=== PATIENT | male | born 1950 | race Caucasian/White ===

== ENCOUNTER 2018-06-19 21:25 | Emergency (ER) | payer MEDICARE ==
[2018-06-19] MEDS ORDERED: VANCOMYCIN HCL INJ 1000 MG VIAL IV ONE (21:44)
[2018-06-19] MEDS ORDERED: NORMAL SALINE 1000 ML 1,000 ML IV ONE (21:44)
[2018-06-19] MEDS ORDERED: PIPERACILLIN/TAZOBACTAM 4.5 GM VIAL IV ONE (21:44)
[2018-06-19 21:51] LABS: ABSOLUTE BASOPHILS # (AUTO) 0.1 10^3/uL (0.0-0.2); ABSOLUTE LYMPHOCYTES (AUTO) 1.5 10^3/uL (0.5-4.7); ABSOLUTE MONOCYTES (AUTO) 1.3 10^3/uL (0.1-1.4); ABSOLUTE NEUT (AUTO) 14.3 10^3/uL (1.7-8.2); BASOPHILS % (AUTO) 0.8 % (0-2); EOSINOPHILS % (AUTO) 0.2 % (0-6); HEMATOCRIT 27.4 % (37.9-51.0); HEMOGLOBIN 9.2 g/dL (13.5-17.0); LYMPHOCYTES % (AUTO) 8.5 % (13-45); MEAN CORPUSCULAR HEMOGLOBIN 29.2 pg (27.0-33.4); MEAN CORPUSCULAR HGB CONC 33.7 g/dL (32.0-36.0); MEAN CORPUSCULAR VOLUME 87 fl (80-97); MONOCYTES % (AUTO) 7.8 % (3-13); PLATELET COUNT 322 10^3/uL (150-450); RED BLOOD COUNT 3.16 10^6/uL (4.35-5.55); RED CELL DISTRIBUTION WIDTH 15.8 % (11.5-14.0); SEGMENTED NEUTROPHILS % (AUTO) 82.7 % (42-78); TOTAL CELLS COUNTED % (AUTO) 100 %; WHITE BLOOD COUNT 17.3 10^3/uL (4.0-10.5)
[2018-06-19 21:58] LABS: INTERNATIONAL RATION (INR) 1.14; PROTHROMBIN TIME 15.2 SEC (11.4-15.4)
[2018-06-19 22:11] LABS: ALANINE AMINOTRANSFERASE 26 U/L (21-72); ALBUMIN 2.9 g/dL (3.5-5.0); ALKALINE PHOSPHATASE 80 U/L (38-126); ANION GAP 11 (5-19); ASPARTATE AMINO TRANSFERASE 19 U/L (17-59); BILIRUBIN,DIRECT 0.2 mg/dL (0.0-0.4); BILIRUBIN,TOTAL 0.6 mg/dL (0.2-1.3); BLOOD UREA NITROGEN 28 mg/dL (7-20); CALCIUM 9.1 mg/dL (8.4-10.2); CARBON DIOXIDE 26 mmol/L (22-30); CHLORIDE 102 mmol/L (98-107); GLUCOSE 207 mg/dL (75-110); POTASSIUM 4.8 mmol/L (3.6-5.0); SODIUM 139.4 mmol/L (137-145); TOTAL PROTEIN 5.6 g/dL (6.3-8.2)
[2018-06-19 22:40] LABS: APPEARANCE,URINE TURBID; BILIRUBIN,URINE NEGATIVE (NEGATIVE); GLUCOSE, URINE 150 mg/dL (NEGATIVE); KETONES,URINE NEGATIVE (NEGATIVE); LEUKOCYTE ESTERASE,URINE LARGE (NEGATIVE); NITRITE,URINE NEGATIVE (NEGATIVE); PROTEIN,URINE >=500 mg/dL (NEGATIVE); URINE SPECIFIC GRAVITY 1.016; UROBILINOGEN,URINE NEGATIVE mg/dL (<2.0)
[2018-06-19 22:41] LABS: COLOR,URINE YELLOW
--- NOTE | 2018-06-19 22:53 | ER Document Report ---
ED General - General Chief Complaint: Nausea/Vomiting Stated Complaint: VOMITING Time Seen by Provider: 06/19/18 21:44 Mode of Arrival: Ambulatory Information source: Patient, Relative - HPI Patient complains to provider of: Fever chills abdominal pain Onset: Other - This is a gentleman that presents for evaluation of fevers as well as shaking chills with a percutaneous Laisha drain placed to decompress his gallbladder he was told it will take approximately 6 months until he is able to have his gallbladder removed. 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 He denies any chest pain at this time, does endorse fever, chills, abdominal pain, he notes that his CODY drain has stopped putting out any fluid today and is concerned. Had his surgery performed in [place] , is uncertain what medicines he actually takes. Past Medical History - General Information source: Patient - Social History Smoking Status: Former Smoker Family History: None Review of Systems - Review of Systems -: Yes All other systems reviewed and negative Physical Exam - Vital signs Vitals: Resp Pulse Ox 19 91 L 06/19/18 21:33 06/19/18 21:33 - General General appearance: Alert In distress: Mild - HEENT Head: Normocephalic Eyes: Normal Conjunctiva: Normal Cornea: Normal Extraocular movements intact: Yes Eyelashes: Normal Pupils: PERRL - Respiratory Respiratory status: No respiratory distress Chest status: Nontender Breath sounds: Normal Chest palpation: Normal - Cardiovascular Rhythm: Regular Heart sounds: Normal auscultation Murmur: No - Abdominal Inspection: Obese Distension: Distended, Other - Percutaneous drain in the right upper quadrant Tenderness: Tender Organomegaly: No organomegaly - Back Back: Normal - Extremities General upper extremity: Normal inspection, Nontender, Normal ROM, Normal strength General lower extremity: Normal inspection, Nontender, Normal ROM, Normal strength - Neurological Neuro grossly intact: Yes Cognition: Normal Orientation: AAOx4 [place] Coma Scale Eye Opening: Spontaneous Dennise Coma Scale Verbal: Oriented Dennise Coma Scale Motor: Obeys Commands Dennise Coma Scale Total: 15 Speech: Normal Cranial nerves: Normal Motor strength normal: LUE, RUE, LLE, RLE - Psychological Associated symptoms: Normal affect Course - Re-evaluation Re-evalutation: This is a 68-year-old male presented for evaluation of decreased output from his drain out of his gallbladder on the right side. He also is noted to have fevers chills and back pain. He is never had any symptoms like this in the past , he notes that he said the drain for several months following an episode in which he became very sick because of his gallbladder. Was told that he would not be able to have his gallbladder taken out for several months. This all happened in [place] also at that time he did have a heart attack. He denies any syncope or other symptoms. Examination the patient does have an obvious drain, there is output in the drain , it is clear in nature. Gentleman is tachycardic with lower blood pressures than usual. We will initiate fluid resuscitation, administration of antibiotics, broad- spectrum workup for probable sepsis. Will obtain CT the abdomen and pelvis for possible underlying infectious etiology including but not limited to biloma. CT the abdomen and pelvis demonstrates a renal hematoma as well as pyelonephritis and a biloma. We will continue antibiotics for this patient, will administer another liter of fluid, he does have a market leukocytosis as well as an elevated lactate at this time consistent with probable developing sepsis. This patient would likely benefit from transfer to a center with interventional radiology as well as gastroenterology and general surgery for his underlying biloma percutaneous drain and potential need for a nephrostomy tube placement. As a result we will proceed with potential transfer, patient is very with this at this time. 06/20/18 00:44 Contacted [facility] Dr. CISNEROS who is in agreement the patient would benefit from transfer at this time, agrees to accept patient to a stepdown bed. Recommended administration of another liter of fluid, repeat lactate check. Contacted [facility] as this patient may have to wait approximately 24 hours for a bed, having contacted [facility] they note that they are close to transfers other than STEMI and strokes. We will plan for repeat administration of Zosyn, will plan for repeat administration of vancomycin as necessary, will plan for administration of home medications including Brilinta. Updated patient regarding current course. He remains hemodynamically stable at this time with blood pressures in the 100s , his heart rate is remaining in the 90s. He is alert oriented and otherwise doing okay. He is in agreement with current course of action at this time. - Vital Signs Vital signs: Temp Pulse Resp BP Pulse Ox 22 H 106/60 91 L 06/20/18 00:01 06/20/18 00:01 06/20/18 00:01 - Laboratory Result Diagrams: 06/19/18 21:40 06/19/18 21:40 Laboratory results interpreted by me: 06/19/18 06/19/18 06/19/18 21:38 21:40 21:40 WBC 17.3 H RBC 3.16 L Hgb 9.2 L Hct 27.4 L RDW 15.8 H Seg Neutrophils % 82.7 H Lymphocytes % 8.5 L Absolute Neutrophils 14.3 H BUN 28 H Creatinine 1.62 H Est GFR ( Amer) 51 L Est GFR (Non-Af Amer) 42 L Glucose 207 H POC Glucose 232 H Lactic Acid Total Protein 5.6 L Albumin 2.9 L Urine Protein Urine Glucose (UA) Urine Blood Ur Leukocyte Esterase 06/19/18 06/19/18 21:48 21:48 WBC RBC Hgb Hct RDW Seg Neutrophils % Lymphocytes % Absolute Neutrophils BUN Creatinine Est GFR ( Amer) Est GFR (Non-Af Amer) Glucose POC Glucose Lactic Acid 2.4 H Total Protein Albumin Urine Protein >=500 H Urine Glucose (UA) 150 H Urine Blood MODERATE H Ur Leukocyte Esterase LARGE H Critical Care Note - Critical Care Note Total time excluding time spent on procedures (mins): 35 Discharge - Discharge Clinical Impression: Pyelonephritis, Biloma, Chills, Nausea Fever Qualifiers: Fever type: unspecified Qualified Code(s): R50.9 - Fever, unspecified Condition: Stable Disposition: [facility]
[2018-06-19 23:36] LABS: VENOUS BLOOD BASE EXCESS 4.4 mmol/L; VENOUS BLOOD HCO3 29.6 mmol/L (20-32); VENOUS BLOOD PCO2 47.4 mmHg (35-63); VENOUS BLOOD PH 7.41 (7.30-7.42)
--- NOTE | 2018-06-19 23:42 | RADIOLOGY REPORT (SQ) ---
EXAM DESCRIPTION: CT ABDOMEN PELVIS WITH IV CONTRAST COMPLETED DATE/TME: 06/19/2018 21:45 CLINICAL HISTORY: 68 years Male, concern for biloma, akshat drainage stopped Comparison: None. Technique: IV contrast. Coronal and sagittal reformat. This exam was performed according to our departmental dose-optimization program, which includes automated exposure control, adjustment of the mA and/or kV according to patient size and/or use of iterative reconstruction technique. [facility]: Dose Right [facility]: CareDose [facility]: Dose Right [facility]: Teradose 4D [facility]: [employer] LIMITATIONS: None Findings: 3.4 cm dilated stacked loops of small bowel in the left paracentral abdomen. Subcapsular right renal hematoma measures 3.4 cm in thickness and causes mild compression of the right kidney. Moderate right perinephric fat stranding. Patchy low-attenuation components of the right kidney may indicate ischemic insult, pyelonephritis, and/or neoplasm. Likely benign left renal cysts. Small bilateral inguinal fat only hernia. Moderate layered hemorrhage posterior to the right kidney. Moderate diffuse urinary bladder wall thickening and elongated urinary bladder. Cholecystectomy. A right upper abdominal drainage catheter tip is within a 5 x 1.2 cm partially encapsulated fluid collection at the gallbladder fossa probably due to biloma, or complicated seroma/abscess; with small fluid extending to the lateral aspect of the duodenum, second portion. Coronary arterial calcification/stent. Atherosclerosis. Atelectasis/scar. Colonic diverticulosis. Normal appendix. Degenerative disc disease. Inferior thorax, liver, pancreas, spleen, adrenals, pelvic organs, lymphatics, vasculature, and musculoskeleton appear otherwise unremarkable. IMPRESSION: 1. Large right perinephric hematoma with moderate layered blood products of the right paracentral retroperitoneum. 2. Abnormal enhancement of the right kidney probably due to multifocal ischemia/infarct. Differential diagnosis includes pyelonephritis and neoplasm. 3. Moderate diffuse urinary bladder cystitis. 4. 5 x 1.2 cm biloma or complicated seroma/abscess with drain. 5. Several loops of 3.4 cm diameter dilated small bowel the left paracentral abdomen probably due to focal ileus or low-grade obstruction.
[2018-06-20] MEDS ORDERED: GABAPENTIN 300 MG CAPSULE PO SCH (00:45)
[2018-06-20] MEDS ORDERED: TICAGRELOR 90 MG TABLET PO SCH (00:45)
[2018-06-20] MEDS: NORMAL SALINE 1000 ML 1,000 ML IV PRN ×2 (01:15→03:17)
[2018-06-20] MEDS ORDERED: NOREPINEPHRINE BITARTRATE INJ/PF 4 MG/4 ML SDV IV ONE (03:31)
[2018-06-20] MEDS ORDERED: NORMAL SALINE 1000 ML 1,000 ML IV ONE ×2 (04:29)
--- NOTE | 2018-06-20 04:36 | RADIOLOGY REPORT (SQ) ---
EXAM DESCRIPTION: XR CHEST 1 VIEW COMPLETED DATE/TME: 06/20/2018 00:00 CLINICAL HISTORY: 68 years Male, central line placed COMPARISON: CT abdomen and pelvis, same day. NUMBER OF VIEWS/TECHNIQUE: 1/AP Limitation: Rotation FINDINGS: Adequate lung volume, clear parenchyma, leftward position/rotation of the cardiac silhouette, chest right jugular central line tip at the cavoatrial junction on rotated view, and intact bony thorax. IMPRESSION: No acute cardiopulmonary findings. Limitation.
[2018-06-20] MEDS ORDERED: PIPERACILLIN/TAZOBACTAM 4.5 GM VIAL IV SCH (06:00)
[2018-06-20] MEDS ORDERED: ONDANSETRON HCL INJ/PF 4 MG/2 ML SDV IV ONE (07:32)
--- NOTE | 2018-06-20 07:51 | ER Document Report ---
Doctor's Note Notes: 06/20/18 07:51 Patient seen and evaluated prior to transfer via flight. Vitals stable. Patient has no complaints.
[2018-06-20 08:00] VITALS: BP 110/60
--- NOTE | 2018-06-20 09:23 | EKG REPORT ---
SEVERITY:- ABNORMAL ECG - SINUS TACHYCARDIA PROBABLE INFERIOR INFARCT, AGE INDETERMINATE : Confirmed by: Hattie Nelson MD 20-Jun-2018 09:22:16
[2018-06-20] MEDS ORDERED: ASPIRIN 81 MG TABLET, CHEWABLE PO SCH (10:00)
[2018-06-20] MEDS ORDERED: FAMOTIDINE 20 MG TABLET PO SCH (10:00)
[2018-06-20] MEDS ORDERED: METFORMIN HCL 500 MG TABLET PO SCH (10:00)
[2018-06-20] MEDS ORDERED: ATORVASTATIN CALCIUM 80 MG TABLET PO SCH (10:00)
[2018-06-20] MEDS ORDERED: MAGNESIUM OXIDE 400 MG TABLET PO SCH (10:00)
== END 2018-06-20 08:10 | disposition short-term general hospital (02) ==
LOC: EDBD → ER 21:25
DX: N12 Tubulo-interstitial nephritis, not specified as acute or chronic (principal); K91.89 Other postprocedural complications and disorders of digestive system; R11.2 Nausea with vomiting, unspecified; R50.9 Fever, unspecified; I25.2 Old myocardial infarction
CPT/HCPCS: 93005; 99291; 96361; 96375; 96365; 96366; 96367; 36415; 87040; 87086; 82962; 85025; 85610; 87088; 80053; 81001; 84484; 87186; 82803; 83605; 71045; 74177; 93010; C1751; J3490; J2405; J7030 ×2; J3370; J2543 ×2

== ENCOUNTER 2018-08-05 17:24 | Emergency (ER) | payer MEDICARE ==
[2018-08-05 18:23] LABS: HEMATOCRIT 28.8 % (37.9-51.0); HEMOGLOBIN 9.4 g/dL (13.5-17.0); MEAN CORPUSCULAR HEMOGLOBIN 28.3 pg (27.0-33.4); MEAN CORPUSCULAR HGB CONC 32.5 g/dL (32.0-36.0); MEAN CORPUSCULAR VOLUME 87 fl (80-97); PLATELET COUNT 409 10^3/uL (150-450); RED BLOOD COUNT 3.31 10^6/uL (4.35-5.55); RED CELL DISTRIBUTION WIDTH 17.7 % (11.5-14.0); WHITE BLOOD COUNT 16.5 10^3/uL (4.0-10.5)
--- NOTE | 2018-08-05 18:24 | RADIOLOGY REPORT (SQ) ---
EXAM DESCRIPTION: CHEST SINGLE VIEW COMPLETED DATE/TIME: 08/05/2018 5:54 pm REASON FOR STUDY: bed 5 db COMPARISON: 06/20/2018 EXAM PARAMETERS: NUMBER OF VIEWS: One view. TECHNIQUE: Single frontal radiographic view of the chest acquired. RADIATION DOSE: NA LIMITATIONS: None. FINDINGS: LUNGS AND PLEURA: No focal consolidation. No pneumothorax. Small bilateral pleural effus ions may be present. MEDIASTINUM AND HILAR STRUCTURES: No masses. Contour normal. HEART AND VASCULAR STRUCTURES: Heart normal in size. Normal vasculature. BONES: No acute findings. HARDWARE: None in the chest. OTHER: No other significant finding. IMPRESSION: NO ACUTE RADIOGRAPHIC FINDING IN THE CHEST. TECHNICAL DOCUMENTATION: JOB ID: [id number] [employer]- All Rights Reserved Reading location - IP/workstation name: [email or web address]
[2018-08-05] MEDS ORDERED: NORMAL SALINE 1000 ML 1,000 ML IV ONE ×2 (18:32→20:47)
--- NOTE | 2018-08-05 18:35 | EKG REPORT ---
SEVERITY:- ABNORMAL ECG - SINUS RHYTHM NONSPECIFIC INTRAVENTRICULAR CONDUCTION DELAY BORDERLINE R WAVE PROGRESSION, ANTERIOR LEADS BORDERLINE ST DEPRESSION, ANTEROLATERAL LEADS : Confirmed by: Lee Goode MD 05-Aug-2018 18:34:12
[2018-08-05 18:48] LABS: ABSOLUTE LYMPHOCYTES# (MANUAL) 0.3 10^3/uL (0.5-4.7); ABSOLUTE MONOCYTES # (MANUAL) 0.3 10^3/uL (0.1-1.4); ABSOLUTE NEUTROPHILS# (MANUAL) 15.8 10^3/uL (1.7-8.2); BAND NEUTROPHILS % (MANUAL) 6 % (3-5); BASOPHILS % (MANUAL) 0 % (0-2); EOSINOPHILS % (MANUAL) 0 % (0-6); LYMPHOCYTES % (MANUAL) 2 % (13-45); MONOCYTES % (MANUAL) 2 % (3-13); SEGMENTED NEUTROPHILS % (MAN) 90 % (42-78); TOTAL CELLS COUNTED 100
[2018-08-05 18:49] LABS: CREATINE KINASE MB 4.4 ng/mL (<4.55)
[2018-08-05 18:51] LABS: ACANTHOCYTES SLIGHT; ANISOCYTOSIS 1+; BURR CELLS 1+; OVALOCYTES SLIGHT; PLATELET COMMENT ADEQUATE; POIKILOCYTOSIS 1+; SCHISTOCYTES SLIGHT; TOXIC VACUOLATION PRESENT
[2018-08-05 18:53] LABS: TOXIC GRANULATION 1+
[2018-08-05 18:56] LABS: TROPONIN I 0.315 ng/mL
[2018-08-05 19:49] LABS: ALANINE AMINOTRANSFERASE 312 U/L (21-72); ALBUMIN 2.9 g/dL (3.5-5.0); ALKALINE PHOSPHATASE 366 U/L (38-126); ANION GAP 15 (5-19); ASPARTATE AMINO TRANSFERASE 378 U/L (17-59); BILIRUBIN,DIRECT 3.4 mg/dL (0.0-0.4); BLOOD UREA NITROGEN 47 mg/dL (7-20); CALCIUM 9.2 mg/dL (8.4-10.2); CARBON DIOXIDE 24 mmol/L (22-30); CHLORIDE 102 mmol/L (98-107); CREATINE KINASE 393 U/L (55-170); GLUCOSE 251 mg/dL (75-110); POTASSIUM 5.1 mmol/L (3.6-5.0); SODIUM 141.3 mmol/L (137-145); TOTAL PROTEIN 5.8 g/dL (6.3-8.2)
[2018-08-05 20:11] LABS: APPEARANCE,URINE SLIGHTLY-CLOUDY; BILIRUBIN,URINE NEGATIVE (NEGATIVE); COLOR,URINE YELLOW; GLUCOSE, URINE NEGATIVE (NEGATIVE); KETONES,URINE NEGATIVE (NEGATIVE); LEUKOCYTE ESTERASE,URINE NEGATIVE (NEGATIVE); NITRITE,URINE NEGATIVE (NEGATIVE); PROTEIN,URINE NEGATIVE (NEGATIVE); URINE SPECIFIC GRAVITY 1.009
--- NOTE | 2018-08-05 20:58 | ER Document Report ---
ED General - General Chief Complaint: Respiratory Distress Stated Complaint: SHORTNESS OF BREATH Time Seen by Provider: 08/05/18 17:38 Mode of Arrival: Stretcher Information source: Patient - HPI Patient complains to provider of: Hypotension, difficulty breathing Onset: This afternoon Onset/Duration: Gradual Severity: Moderate Notes: Patient is a 68-year-old male with multiple medical problems who is a poor historian, who was brought to the emergency department by EMS for complaints of shortness of breath that started sometime yesterday, he is noted to have a blood pressure of 66/38 on EMS arrival, I subsequently received medical records from [facility] where patient was cared for from 07/21 through after being seen in this emergency department and being transferred there, by history in December 2017 patient had an WI in [place], a few days later while in a [place] rehab center he developed fever and signs of sepsis, was transferred back to the hospital in [place] and subsequently diagnosed with sepsis likely from cholecystitis versus cholangitis, since he had just had an WI he was deemed to not be a surgical candidate and instead a cholecystostomy tube was placed, he subsequently moved to [facility] proximally 5 weeks ago, he presented to this emergency department on June 19 and was subsequently transferred from this hospital to tertiary formerly [facility] secondary to cholecystostomy tube malfunction, cholecystostomy tube was changed out as it was clogged and likely the source of sepsis, on examination today no longer has a cholecystostomy tube and he reports that it fell out sometime in his sleep approximately 1 month ago - Related Data Allergies/Adverse Reactions: No Known Allergies Allergy (Verified 06/20/18 07:41) Past Medical History - General Information source: Patient, Outside Facility Records - Social History Smoking Status: Unknown if Ever Smoked Chew tobacco use (# tins/day): No Frequency of alcohol use: None Drug Abuse: None Family History: None Patient has suicidal ideation: No Patient has homicidal ideation: No Endocrine Medical History: Reports: Hx Diabetes Mellitus Type 2 Renal/ Medical History: Denies: Hx Peritoneal Dialysis Review of Systems - Review of Systems Constitutional: No symptoms reported EENT: No symptoms reported Cardiovascular: No symptoms reported Respiratory: Short of breath Gastrointestinal: See HPI Genitourinary: No symptoms reported Male Genitourinary: No symptoms reported Musculoskeletal: No symptoms reported Skin: No symptoms reported Hematologic/Lymphatic: No symptoms reported Neurological/Psychological: No symptoms reported -: Yes All other systems reviewed and negative Physical Exam - Vital signs Vitals: Resp Pulse Ox 22 H 89 L 08/05/18 17:50 08/05/18 17:50 Interpretation: Hypotensive, Tachycardic, Hypoxic - General General appearance: Alert In distress: Moderate - HEENT Head: Normocephalic, Atraumatic Eyes: Scleral icterus Mucous membranes: Dry Pharynx: Normal Neck: Normal - Respiratory Respiratory status: Tachypnea Chest status: Nontender Breath sounds: Normal Chest palpation: Normal - Cardiovascular Rhythm: Regular, Tachycardia - Abdominal Inspection: Obese Distension: Distended - Soft, right upper quadrant tenderness, closed stoma from previous cholecystostomy tube in the right upper quadrant - Back Back: Normal - Extremities General upper extremity: Normal inspection General lower extremity: Edema - Pitting edema in bilateral lower extremities - Neurological Cognition: Confused Dennise Coma Scale Eye Opening: Spontaneous Dennise Coma Scale Verbal: Oriented [place] Coma Scale Motor: Obeys Commands Dennise Coma Scale Total: 15 - Skin Skin Temperature: Warm Skin Moisture: Dry Skin Color: Jaundiced Course - Re-evaluation Re-evalutation: 08/05/18 20:57 call to [facility] requested medical records 08/05/18 23:02 Call [facility], attempted to speak with transfer center about having patient transferred there for further evaluation and treatment, however I was informed by [facility] that they currently have no beds of any type except for pediatrics or direct except such as STEMI or trauma patients, and they are not putting any patients on any waiting list at this point in time either 08/05/18 23:10 [facility] with [facility] they also have no beds except for direct accepts at this time and we will not place patient on waiting list either 08/05/18 23:23 A call was placed to [facility], patient was discussed with hospitalist, Dr. Simba Milligan, who states he will check the bed situation at their facility and give me a call back if they are able to accept this patient - Vital Signs Vital signs: Temp Pulse Resp BP Pulse Ox 98.1 F 101 H 22 H 94/61 L 92 08/06/18 01:01 08/05/18 18:01 08/06/18 01:01 08/06/18 01:01 08/06/18 01:01 - Laboratory Result Diagrams: 08/05/18 17:55 08/05/18 19:12 Laboratory results interpreted by me: 08/05/18 08/05/18 08/05/18 17:55 17:55 19:12 WBC 16.5 H RBC 3.31 L Hgb 9.4 L Hct 28.8 L RDW 17.7 H Seg Neuts % (Manual) 90 H Band Neutrophils % 6 H Lymphocytes % (Manual) 2 L Monocytes % (Manual) 2 L Abs Neuts (Manual) 15.8 H Abs Lymphs (Manual) 0.3 L Potassium 5.1 H BUN 47 H Creatinine 2.27 H Est GFR ( Amer) 35 L Est GFR (Non-Af Amer) 29 L Glucose 251 H Total Bilirubin 4.0 H Direct Bilirubin 3.4 H AST 378 H ALT 312 H Alkaline Phosphatase 366 H Creatine Kinase 393 H NT-Pro-B Natriuret Pep 18976 H Total Protein 5.8 L Albumin 2.9 L Urine Blood Urine Urobilinogen 08/05/18 19:46 WBC RBC Hgb Hct RDW Seg Neuts % (Manual) Band Neutrophils % Lymphocytes % (Manual) Monocytes % (Manual) Abs Neuts (Manual) Abs Lymphs (Manual) Potassium BUN Creatinine Est GFR ( Amer) Est GFR (Non-Af Amer) Glucose Total Bilirubin Direct Bilirubin AST ALT Alkaline Phosphatase Creatine Kinase NT-Pro-B Natriuret Pep Total Protein Albumin Urine Blood LARGE H Urine Urobilinogen 2.0 H - EKG Interpretation by Me EKG shows normal: Sinus rhythm Rate: Normal Rhythm: NSR When compared to previous EKG there are: No significant change Critical Care Note - Critical Care Note Total time excluding time spent on procedures (mins): 100 Comments: Patient septic with persistent hypotension requiring fluid bolus followed by Levophed drip, IV antibiotics and transfer to tertiary care center for further evaluation and treatment Discharge - Discharge Clinical Impression: Sepsis, Cholecystitis with cholangitis, Elevated troponin, Congestive heart failure, CKD (chronic kidney disease) Condition: Critical Disposition: [facility]
[2018-08-05] MEDS ORDERED: DEXTROSE 5%-WATER 250 ML with NOREPINEPHRINE BITARTRATE 4 MG IV PRN ×2 (21:47)
[2018-08-05] MEDS ORDERED: NOREPINEPHRINE BITARTRATE INJ/PF 4 MG/4 ML SDV IV ONE (21:49)
[2018-08-05] MEDS ORDERED: PIPERACILLIN/TAZOBACTAM 3.375 GM VIAL IV ONE (23:05)
[2018-08-06 01:08] VITALS: BP 94/61
[2018-08-06] MEDS ORDERED: PIPERACILLIN/TAZOBACTAM 3.375 GM VIAL IV ONE (01:30)
== END 2018-08-06 02:00 | disposition short-term general hospital (02) ==
LOC: ER 17:24
DX: A41.9 Sepsis, unspecified organism (principal); K81.9 Cholecystitis, unspecified; R06.02 Shortness of breath; R06.00 Dyspnea, unspecified; I95.9 Hypotension, unspecified; E11.22 Type 2 diabetes mellitus with diabetic chronic kidney disease; N18.9 Chronic kidney disease, unspecified; I50.9 Heart failure, unspecified; I25.2 Old myocardial infarction
CPT/HCPCS: 93005; 99291; 99292; 96361; 96365; 96366; 96368; 36415; 82553; 82550; 83690; 85025; 80053; 81001; 84484; 83880; 71045; 93010; J3490; J7060; J7030; J2543

== ENCOUNTER 2018-10-15 11:30 | Inpatient (IN) | payer MEDICARE ==
[2018-10-15] MEDS ORDERED: NORMAL SALINE 500 ML IV ONE (12:47)
--- NOTE | 2018-10-15 12:50 | ER Document Report ---
ED Medical Screen (RME) - General Chief Complaint: Shortness Of Breath Stated Complaint: DIFFICULTY BREATHING Time Seen by Provider: 10/15/18 12:31 Notes: Patient is a 68-year-old male with history of sepsis that presents to the emergency department for chief complaint of feeling chilled, and shortness of breath. Patient reports having shortness of breath that started yesterday, and he feels like he is getting septic again as he had in the past. Although denies recording a fever at home, he states that his home health nurse was concerned and advised that he come to the ED for evaluation. ROS: Other than noted above, the 12 point review of systems was reviewed with the patient and were negative, all pertinent findings are included in the HPI. PHYSICAL EXAMINATION: Vital signs reviewed. GENERAL: Elderly male, no acute distress HEAD: Atraumatic, normocephalic. EYES: Pupils equal round extraocular movements intact, conjunctiva are normal. ENT: Nares patent NECK: Normal range of motion CV: Heart regular rate and rhythm LUNGS: No respiratory distress Abdomen: Soft, non-tender, Cholecystostomy tube present, bilious drainage noted in the drainage bag. Musculoskeletal: Normal range of motion NEUROLOGICAL: Normal speech PSYCH: Normal mood, normal affect. MDM: Patient seen and examined for rapid initial assessment. Vital signs reviewed. A comprehensive ED assessment and evaluation of the patient, analysis of test results and completion of the medical decision making process will be conducted by additional ED providers. *Note is created using voice recognition software and may contain spelling, syntax or grammatical errors. - Related Data Allergies/Adverse Reactions: No Known Allergies Allergy (Verified 10/15/18 11:33) Past Medical History Endocrine Medical History: Reports: Hx Diabetes Mellitus Type 2 Renal/ Medical History: Denies: Hx Peritoneal Dialysis Physical Exam - Vital signs Vitals: Temp Pulse Resp BP Pulse Ox 99.9 F 85 18 107/58 L 99 10/15/18 11:37 10/15/18 11:37 10/15/18 11:37 10/15/18 11:37 10/15/18 11:37 Course - Vital Signs Vital signs: Temp Pulse Resp BP Pulse Ox 99.9 F 85 18 107/58 L 99 10/15/18 11:37 10/15/18 11:37 10/15/18 11:37 10/15/18 11:37 10/15/18 11:37
[2018-10-15 13:40] LABS: ABSOLUTE BASOPHILS # (AUTO) 0.1 10^3/uL (0.0-0.2); ABSOLUTE EOSINOPHILS # (AUTO) 0.1 10^3/uL (0.0-0.6); ABSOLUTE LYMPHOCYTES (AUTO) 1.5 10^3/uL (0.5-4.7); ABSOLUTE MONOCYTES (AUTO) 1.2 10^3/uL (0.1-1.4); ABSOLUTE NEUT (AUTO) 6.5 10^3/uL (1.7-8.2); BASOPHILS % (AUTO) 0.9 % (0-2); EOSINOPHILS % (AUTO) 1.1 % (0-6); HEMATOCRIT 29.5 % (37.9-51.0); HEMOGLOBIN 9.9 g/dL (13.5-17.0); LYMPHOCYTES % (AUTO) 15.7 % (13-45); MEAN CORPUSCULAR HEMOGLOBIN 28.8 pg (27.0-33.4); MEAN CORPUSCULAR HGB CONC 33.6 g/dL (32.0-36.0); MEAN CORPUSCULAR VOLUME 86 fl (80-97); PLATELET COUNT 382 10^3/uL (150-450); RED BLOOD COUNT 3.44 10^6/uL (4.35-5.55); RED CELL DISTRIBUTION WIDTH 18.8 % (11.5-14.0); SEGMENTED NEUTROPHILS % (AUTO) 69.3 % (42-78); TOTAL CELLS COUNTED % (AUTO) 100 %; WHITE BLOOD COUNT 9.4 10^3/uL (4.0-10.5)
[2018-10-15 13:41] LABS: VENOUS BLOOD BASE EXCESS 3.2 mmol/L; VENOUS BLOOD HCO3 28.9 mmol/L (20-32); VENOUS BLOOD PH 7.4 (7.30-7.42)
[2018-10-15 13:41] LABS: APPEARANCE,URINE CLEAR; BILIRUBIN,URINE NEGATIVE (NEGATIVE); COLOR,URINE YELLOW; GLUCOSE, URINE NEGATIVE (NEGATIVE); KETONES,URINE NEGATIVE (NEGATIVE); LEUKOCYTE ESTERASE,URINE SMALL (NEGATIVE); NITRITE,URINE NEGATIVE (NEGATIVE); PROTEIN,URINE NEGATIVE (NEGATIVE); URINE SPECIFIC GRAVITY 1.009; UROBILINOGEN,URINE NEGATIVE mg/dL (<2.0)
[2018-10-15 13:48] LABS: INTERNATIONAL RATION (INR) 1.18; PROTHROMBIN TIME 15.6 SEC (11.4-15.4)
--- NOTE | 2018-10-15 13:51 | RADIOLOGY REPORT (SQ) ---
EXAM DESCRIPTION: CHEST SINGLE VIEW COMPLETED DATE/TIME: 10/15/2018 1:38 pm REASON FOR STUDY: short of breath COMPARISON: 08/05/2018 EXAM PARAMETERS: NUMBER OF VIEWS: One view. TECHNIQUE: Single frontal radiographic view of the chest acquired. RADIATION DOSE: NA LIMITATIONS: None. FINDINGS: LUNGS AND PLEURA: Small bilateral pleural effusions. MEDIASTINUM AND HILAR STRUCTURES: No masses. Contour normal. HEART AND VASCULAR STRUCTURES: Heart enlarged. Vascular congestion. BONES: No acute findings. HARDWARE: None in the chest. OTHER: No other significant finding. IMPRESSION: Vascular congestion. Small pleural effusions. TECHNICAL DOCUMENTATION: JOB ID: [id number] [employer]- All Rights Reserved Reading location - IP/workstation name: [email or web address]
[2018-10-15 14:07] LABS: ALANINE AMINOTRANSFERASE 28 U/L (21-72); ALBUMIN 4.1 g/dL (3.5-5.0); ALKALINE PHOSPHATASE 113 U/L (38-126); ANION GAP 11 (5-19); ASPARTATE AMINO TRANSFERASE 40 U/L (17-59); BILIRUBIN,DIRECT 0.3 mg/dL (0.0-0.4); BILIRUBIN,TOTAL 0.7 mg/dL (0.2-1.3); BLOOD UREA NITROGEN 50 mg/dL (7-20); CALCIUM 10.1 mg/dL (8.4-10.2); CARBON DIOXIDE 29 mmol/L (22-30); CHLORIDE 99 mmol/L (98-107); GLUCOSE 164 mg/dL (75-110); POTASSIUM 4.3 mmol/L (3.6-5.0); SODIUM 139.2 mmol/L (137-145); TOTAL PROTEIN 7.5 g/dL (6.3-8.2)
[2018-10-15] MEDS ORDERED: ASPIRIN 81 MG TABLET, CHEWABLE PO ONE (14:17)
[2018-10-15] MEDS ORDERED: FUROSEMIDE INJ/PF 20 MG/2 ML SDV IV ONE (14:54)
--- NOTE | 2018-10-15 14:58 | ER Document Report ---
ED General - General Chief Complaint: Shortness Of Breath Stated Complaint: DIFFICULTY BREATHING Time Seen by Provider: 10/15/18 12:31 Primary Care Provider: GUILLE FRANZ PA-C [Primary Care Provider] - Follow up as needed Mode of Arrival: Medic Information source: Patient, Emergency Med Personnel, [facility] Records Notes: 68-year-old male with coronary artery disease, congestive heart failure, hyperlipidemia, hypertension, type 2 diabetes, neuropathy, chronic cholecystitis with drain placement presents via EMS from home with complaint of shortness of breath that started yesterday. Patient states that he has been short of breath at rest. He does report that he underwent a stress test yesterday that was ordered by his protective service specialist Dr. Honeycutt. Patient does not know the results of that test. Patient denies fever, nausea, vomiting, chest pain, abdominal pain. He does report chills. Patient reports a recent hospitalization 6 weeks ago to [facility] for sepsis. - HPI Onset: Yesterday Onset/Duration: Sudden Quality of pain: No pain Severity: None Associated symptoms: Chills, Shortness of breath, Weakness. denies: Chest pain, Fever, Headache, Hurts to breath, Nausea, Vomiting, Sweating Exacerbated by: Movement Relieved by: Remaining still Similar symptoms previously: Yes Recently seen / treated by doctor: Yes - Related Data Allergies/Adverse Reactions: No Known Allergies Allergy (Verified 10/15/18 11:33) Past Medical History - General Information source: Patient - Social History Smoking Status: Never Smoker Frequency of alcohol use: None Drug Abuse: None Lives with: Family Family History: None Patient has suicidal ideation: No Patient has homicidal ideation: No - Past Medical History Cardiac Medical History: Reports: Hx Congestive Heart Failure, Hx Heart Attack, Hx Hypercholesterolemia, Hx Hypertension Endocrine Medical History: Reports: Hx Diabetes Mellitus Type 2 Renal/ Medical History: Denies: Hx Peritoneal Dialysis Past Surgical History: Reports: Hx Cardiac Catheterization, Hx Orthopedic Surgery, Hx Tonsillectomy Review of Systems - Review of Systems Notes: REVIEW OF SYSTEMS: CONSTITUTIONAL : Denies fever, sweats. Denies weight loss, EENT: Denies visual changes, eye pain. Denies sore throat, oral lesions, difficulty swallowing. CARDIOVASCULAR: Denies chest pain. Denies palpitations. Denies lower extremity edema. RESPIRATORY: Denies cough. Denies wheezing. GASTROINTESTINAL: Denies abdominal pain or distention. Denies nausea, vomiting, or diarrhea. Denies blood in vomitus, stools, or per rectum. Denies black, tarry stools. Denies constipation. GENITOURINARY: Denies difficulty urinating, painful urination, frequency, blood in urine, testicular pain or penile discharge. MUSCULOSKELETAL: Denies back or neck pain or stiffness. Denies joint pain or swelling. SKIN: Denies rash, lesions or sores. HEMATOLOGIC : Denies easy bruising or bleeding. LYMPHATIC: Denies swollen glands. NEUROLOGICAL: Denies confusion or altered mental status. Denies loss of consciousness. Denies dizziness or lightheadedness. Denies headache. Denies weakness or paralysis. Denies problems difficulty with ambulation, slurred speech. Denies sensory loss, numbness, or tingling. Denies seizures. PSYCHIATRIC: Denies anxiety or stress. Denies depression, suicidal ideation, or Physical Exam - Vital signs Vitals: Temp Pulse Resp BP Pulse Ox 99.9 F 85 18 107/58 L 99 10/15/18 11:37 10/15/18 11:37 10/15/18 11:37 10/15/18 11:37 10/15/18 11:37 - Notes Notes: PHYSICAL EXAMINATION: GENERAL: Well-appearing, well-nourished and in no acute distress. HEAD: Atraumatic, normocephalic. EYES: Pupils equal round and reactive to light, extraocular movements intact, sclera anicteric, conjunctiva are normal. ENT: Nares patent, oropharynx clear without exudates. Moist mucous membranes. NECK: Normal range of motion, supple without lymphadenopathy LUNGS: diminished breath sounds bilaterally and equal. No wheezes rales or rhonchi. HEART: Regular rate and rhythm without murmurs ABDOMEN: Soft, nontender, nondistended abdomen. No guarding, no rebound. No masses appreciated. Percutaneous drain in the right upper quadrant with green discharge. Musculoskeletal: Normal range of motion, no pitting or edema. No cyanosis. NEUROLOGICAL: Cranial nerves grossly intact. Normal speech, normal gait. Normal sensory, motor exams PSYCH: Normal mood, normal affect. SKIN: Warm, Dry, normal turgor, no rashes or lesions noted. Course - Re-evaluation Re-evalutation: Laboratory 10/15/18 10/15/18 10/15/18 12:20 13:11 13:23 WBC 9.4 RBC 3.44 L Hgb 9.9 L Hct 29.5 L MCV 86 MCH 28.8 MCHC 33.6 RDW 18.8 H Plt Count 382 Seg Neutrophils % 69.3 Lymphocytes % 15.7 Monocytes % 13.0 Eosinophils % 1.1 Basophils % 0.9 Absolute Neutrophils 6.5 Absolute Lymphocytes 1.5 Absolute Monocytes 1.2 Absolute Eosinophils 0.1 Absolute Basophils 0.1 PT INR VBG pH VBG pCO2 VBG HCO3 VBG Base Excess Sodium Potassium Chloride Carbon Dioxide Anion Gap BUN Creatinine Est GFR ( Amer) Est GFR (Non-Af Amer) Glucose POC Glucose 161 H Lactic Acid Calcium Total Bilirubin Direct Bilirubin Neonat Total Bilirubin Neonat Direct Bilirubin Neonat Indirect Bili AST ALT Alkaline Phosphatase Troponin I NT-Pro-B Natriuret Pep Total Protein Albumin Lipase Urine Color YELLOW Urine Appearance CLEAR Urine pH 6.0 Ur Specific [place] 1.009 Urine Protein NEGATIVE Urine Glucose (UA) NEGATIVE Urine Ketones NEGATIVE Urine Blood NEGATIVE Urine Nitrite NEGATIVE Urine Bilirubin NEGATIVE Urine Urobilinogen NEGATIVE Ur Leukocyte Esterase SMALL H Urine WBC (Auto) 10 Urine RBC (Auto) 1 U Hyaline Cast (Auto) 4 Urine Bacteria (Auto) TRACE Urine Ascorbic Acid NEGATIVE 10/15/18 10/15/18 10/15/18 13:23 13:23 13:23 WBC RBC Hgb Hct MCV MCH MCHC RDW Plt Count Seg Neutrophils % Lymphocytes % Monocytes % Eosinophils % Basophils % Absolute Neutrophils Absolute Lymphocytes Absolute Monocytes Absolute Eosinophils Absolute Basophils PT 15.6 H INR 1.18 VBG pH VBG pCO2 VBG HCO3 VBG Base Excess Sodium 139.2 Potassium 4.3 Chloride 99 Carbon Dioxide 29 Anion Gap 11 BUN 50 H Creatinine 1.86 H Est GFR ( Amer) 44 L Est GFR (Non-Af Amer) 36 L Glucose 164 H POC Glucose Lactic Acid 1.3 Calcium 10.1 Total Bilirubin 0.7 Direct Bilirubin 0.3 Neonat Total Bilirubin Not Reportable Neonat Direct Bilirubin Not Reportable Neonat Indirect Bili Not Reportable AST 40 ALT 28 Alkaline Phosphatase 113 Troponin I NT-Pro-B Natriuret Pep Total Protein 7.5 Albumin 4.1 Lipase Urine Color Urine Appearance Urine pH Ur Specific [place] Urine Protein Urine Glucose (UA) Urine Ketones Urine Blood Urine Nitrite Urine Bilirubin Urine Urobilinogen Ur Leukocyte Esterase Urine WBC (Auto) Urine RBC (Auto) U Hyaline Cast (Auto) Urine Bacteria (Auto) Urine Ascorbic Acid 10/15/18 10/15/18 10/15/18 13:23 13:23 13:23 WBC RBC Hgb Hct MCV MCH MCHC RDW Plt Count Seg Neutrophils % Lymphocytes % Monocytes % Eosinophils % Basophils % Absolute Neutrophils Absolute Lymphocytes Absolute Monocytes Absolute Eosinophils Absolute Basophils PT INR VBG pH 7.40 VBG pCO2 48.0 VBG HCO3 28.9 VBG Base Excess 3.2 Sodium Potassium Chloride Carbon Dioxide Anion Gap BUN Creatinine Est GFR ( Amer) Est GFR (Non-Af Amer) Glucose POC Glucose Lactic Acid Calcium Total Bilirubin Direct Bilirubin Neonat Total Bilirubin Neonat Direct Bilirubin Neonat Indirect Bili AST ALT Alkaline Phosphatase Troponin I 1.300 NT-Pro-B Natriuret Pep Total Protein Albumin Lipase 26.7 Urine Color Urine Appearance Urine pH Ur Specific [place] Urine Protein Urine Glucose (UA) Urine Ketones Urine Blood Urine Nitrite Urine Bilirubin Urine Urobilinogen Ur Leukocyte Esterase Urine WBC (Auto) Urine RBC (Auto) U Hyaline Cast (Auto) Urine Bacteria (Auto) Urine Ascorbic Acid 10/15/18 10/15/18 10/15/18 13:23 15:20 15:20 WBC RBC Hgb Hct MCV MCH MCHC RDW Plt Count Seg Neutrophils % Lymphocytes % Monocytes % Eosinophils % Basophils % Absolute Neutrophils Absolute Lymphocytes Absolute Monocytes Absolute Eosinophils Absolute Basophils PT INR VBG pH VBG pCO2 VBG HCO3 VBG Base Excess Sodium Potassium Chloride Carbon Dioxide Anion Gap BUN Creatinine Est GFR ( Amer) Est GFR (Non-Af Amer) Glucose POC Glucose Lactic Acid 1.6 Calcium Total Bilirubin Direct Bilirubin Neonat Total Bilirubin Neonat Direct Bilirubin Neonat Indirect Bili AST ALT Alkaline Phosphatase Troponin I Cancelled 1.230 NT-Pro-B Natriuret Pep 9390 H Total Protein Albumin Lipase Urine Color Urine Appearance Urine pH Ur Specific [place] Urine Protein Urine Glucose (UA) Urine Ketones Urine Blood Urine Nitrite Urine Bilirubin Urine Urobilinogen Ur Leukocyte Esterase Urine WBC (Auto) Urine RBC (Auto) U Hyaline Cast (Auto) Urine Bacteria (Auto) Urine Ascorbic Acid Chest X-Ray 10/15/18 12:48 IMPRESSION: Vascular congestion. Small pleural effusions. Temp Pulse Resp BP Pulse Ox 99.9 F 85 28 H 108/81 95 10/15/18 11:37 10/15/18 11:37 10/15/18 21:01 10/15/18 21:01 10/15/18 21:01 68-year-old male with coronary artery disease, congestive heart failure, hyperlipidemia, hypertension, type 2 diabetes, neuropathy, chronic cholecystitis with drain placement presents via EMS from home with complaint of shortness of breath that started yesterday. 10/15/18 15:03 Patient's troponin found to be 1.3 which is an increase from prior visits in July that showed a troponin of 0.31. Patient does take aspirin, Brilinta. Bedside ultrasound was performed and no significant pericardial effusion was seen. [facility] contacted for transfer as patient's protective service specialist is they are and he has been recently admitted. Patient did receive aspirin, Lovenox, Lasix. Chest x-ray consistent with vascular congestion, CHF. 10/15/18 16:38 Delta troponin obtained and now 1.23. Third troponin continues to be downtrending. Patient has been stable throughout his ED course. Lovenox scheduled. Expect transfer in the morning. Patient has been accepted for admission by Dr. Mark Walters at [facility] 10/15/18 22:52 10/15/18 22:53 10/15/18 22:54 - Vital Signs Vital signs: Temp Pulse Resp BP Pulse Ox 99.9 F 85 28 H 108/81 95 10/15/18 11:37 10/15/18 11:37 10/15/18 21:01 10/15/18 21:01 10/15/18 21:01 - Laboratory Result Diagrams: 10/15/18 13:23 10/15/18 13:23 Laboratory results interpreted by pa: 10/15/18 10/15/18 10/15/18 12:20 13:11 13:23 RBC 3.44 L Hgb 9.9 L Hct 29.5 L RDW 18.8 H PT BUN Creatinine Est GFR ( Amer) Est GFR (Non-Af Amer) Glucose POC Glucose 161 H NT-Pro-B Natriuret Pep Ur Leukocyte Esterase SMALL H 10/15/18 10/15/18 10/15/18 13:23 13:23 13:23 RBC Hgb Hct RDW PT 15.6 H BUN 50 H Creatinine 1.86 H Est GFR ( Amer) 44 L Est GFR (Non-Af Amer) 36 L Glucose 164 H POC Glucose NT-Pro-B Natriuret Pep 9390 H Ur Leukocyte Esterase - Diagnostic Test Radiology reviewed: Image reviewed, Reports reviewed - EKG Interpretation by Me EKG shows normal: Sinus rhythm, ST-T Waves - ST depression the fourth through V6. Rate: Normal Rhythm: NSR [place]/QRS: LPHB/LPFB When compared to previous EKG there are: Changes noted Critical Care Note - Critical Care Note Total time excluding time spent on procedures (mins): 40 - Minutes of critical care time spent in direct contact evaluating and reevaluating the patient, treating symptoms, reviewing labs and studies and speaking with family and consultants excluding any procedures Discharge - Discharge Clinical Impression: NSTEMI (non-ST elevated myocardial infarction), SOB (shortness of breath), Hypoxia CHF (congestive heart failure) Qualifiers: Heart failure type: unspecified Heart failure chronicity: unspecified Qualified Code(s): I50.9 - Heart failure, unspecified Condition: Good Disposition: [facility] Referrals: GUILLE FRANZ PA-C [Primary Care Provider] - Follow up as needed
--- NOTE | 2018-10-15 22:54 | EKG REPORT ---
SEVERITY:- ABNORMAL ECG - SINUS RHYTHM LEFT POSTERIOR FASCICULAR BLOCK BORDERLINE R WAVE PROGRESSION, ANTERIOR LEADS ST DEPRESSION, CONSIDER ISCHEMIA, LAT LEADS : Confirmed by: Misty Brown 15-Oct-2018 22:53:20
[2018-10-16] MEDS ORDERED: CEFTRIAXONE 1 GM/D5W RTU 1 GM/50 ML RTUPB IV ONE (08:47)
[2018-10-16 09:55] LABS: ABSOLUTE BASOPHILS # (AUTO) 0.1 10^3/uL (0.0-0.2); ABSOLUTE EOSINOPHILS # (AUTO) 0.2 10^3/uL (0.0-0.6); ABSOLUTE LYMPHOCYTES (AUTO) 1.3 10^3/uL (0.5-4.7); ABSOLUTE MONOCYTES (AUTO) 1.2 10^3/uL (0.1-1.4); ABSOLUTE NEUT (AUTO) 7.1 10^3/uL (1.7-8.2); BASOPHILS % (AUTO) 0.6 % (0-2); EOSINOPHILS % (AUTO) 1.8 % (0-6); HEMATOCRIT 28.5 % (37.9-51.0); HEMOGLOBIN 9.7 g/dL (13.5-17.0); LYMPHOCYTES % (AUTO) 13.2 % (13-45); MEAN CORPUSCULAR HEMOGLOBIN 29.2 pg (27.0-33.4); MEAN CORPUSCULAR VOLUME 86 fl (80-97); MONOCYTES % (AUTO) 12.5 % (3-13); PLATELET COUNT 339 10^3/uL (150-450); RED BLOOD COUNT 3.32 10^6/uL (4.35-5.55); RED CELL DISTRIBUTION WIDTH 18.8 % (11.5-14.0); SEGMENTED NEUTROPHILS % (AUTO) 71.9 % (42-78); TOTAL CELLS COUNTED % (AUTO) 100 %; WHITE BLOOD COUNT 9.8 10^3/uL (4.0-10.5)
[2018-10-16 10:10] LABS: ALANINE AMINOTRANSFERASE 24 U/L (21-72); ALBUMIN 3.6 g/dL (3.5-5.0); ALKALINE PHOSPHATASE 107 U/L (38-126); ANION GAP 10 (5-19); ASPARTATE AMINO TRANSFERASE 28 U/L (17-59); BILIRUBIN,DIRECT 0.2 mg/dL (0.0-0.4); BILIRUBIN,TOTAL 0.5 mg/dL (0.2-1.3); BLOOD UREA NITROGEN 47 mg/dL (7-20); CALCIUM 9.6 mg/dL (8.4-10.2); CARBON DIOXIDE 29 mmol/L (22-30); CHLORIDE 102 mmol/L (98-107); GLUCOSE 197 mg/dL (75-110); SODIUM 140.6 mmol/L (137-145); TOTAL PROTEIN 6.6 g/dL (6.3-8.2)
--- NOTE | 2018-10-16 10:35 | ER Document Report ---
Doctor's Note Notes: 10/16/18 10:32 Rounds: Chart reviewed and patient interviewed. Patient being evaluated for difficulty breathing and shortness of breath, diagnosed with a non-STEMI and CHF. Patient says his breathing is getting better, although he still short of breath with any exertion. Chest x-ray showed increased vascular congestion. He was found to have an elevated troponin of 1.2 even though his EKG showed no changes that would suggest an acute DC. His repeat troponins are down to 1.05. Patient was recently in [facility] for his sepsis. It was felt that he should be transferred back to their for care of this non-STEMI. This morning, all his vital signs are essentially normal. Patient appears to be medically stable for transfer. . Otf Espinal MD
--- NOTE | 2018-10-17 09:33 | ER Document Report ---
Doctor's Note Notes: 10/17/18 09:31 Rounds: Chart reviewed and patient interviewed. Patient says his breathing is much better. Looks much better than yesterday. Patient's troponins are trending downward. His initial troponin was 1.2 and this morning is down to 0.67. I do not find any reason that this patient needs to be transferred to [facility], at this time. Patient is agreeable to being admitted here. I spoke with the hospitalist who asked that I consult with Dr. Nelson, rv detailer on- call, to see if it is okay to admit the patient here. I discussed this case with Dr. Nelson and he said that he was fine with the patient staying here. I let the hospitalist know that and we will admit the patient to [facility]. Otf Espinal MD
[2018-10-17] MEDS ORDERED: ACETAMINOPHEN 325 MG TABLET PO PRN (10:03)
[2018-10-17] MEDS ORDERED: DEXTROSE 50%-WATER 25 GM/50 ML DISP.SYRIN IV PRN ×2 (10:14)
[2018-10-17] MEDS ORDERED: GLUCAGON,HUMAN RECOMB 1 MG INJ IM PRN (10:14)
[2018-10-17] MEDS ORDERED: DEXTROSE 40% GEL 15 GM TUBE PO PRN ×2 (10:14)
--- NOTE | 2018-10-17 10:33 | PDOC H&P ---
History of Present Illness Admission Date/PCP: 10/17/18 09:48 GUILLE FRANZ PA-C Patient complains of: Came in with shortness of breath and cold symptoms History of Present Illness: CHASE LIPSCOMB is a 68 year old male with history of congestive heart failure, coronary artery disease status post multiple stent placements, gallbladder disease with gallbladder drain, chronic pain syndrome, hypertension, diabetes mellitus, history of [place] came to the emergency room 2 days ago with complaints of sudden onset of cold and shortness of breath. He woke up around 8 AM with cold symptoms and shortness of breath decided to came to the emergency room for further evaluation. He denies any chest pains denies any nausea denies any headaches denies any vomiting diarrhea no constipation no sweating no other complaints. He was evaluated in the emergency room found to have initial troponins are elevated at 1.3 and patient was also found to be hypoxic decision was made to transfer the patient to [facility]. Patient is waiting for the bed for the last 2 days and there is no possibility of bed for the next 24- 48 hours. In the meantime the troponins are trending down latest troponin is 0.677. Dr. Nelson was consulted he thinks elevated troponins most likely secondary to CHF exacerbation and he agreed to do the consultation and recommended hospitalist can be admitt the patient. I went to talk to the patient patient is comfortably in the chair not in distress able to provide a good history. Agreed to stay here in this hospital for further management. He want to be DNI but wants resuscitation measures like a chest compressions. Past Medical History Cardiac Medical History: Reports: Congestive Heart Failure, Myocardial Infarction, Hyperlipidema, Hypertension Endocrine Medical History: Reports: Diabetes Mellitus Type 2 Psychiatric Medical History: Reports: None Traumatic Medical History: Reports: None Past Surgical History Past Surgical History: Reports: Cardiac Catheterization, Orthopedic Surgery, Tonsillectomy, Other - Patient has a gallbladder drain since December last year. Social History Lives with: Family Smoking Status: Never Smoker Frequency of Alcohol Use: None Hx Recreational Drug Use: No Drugs: None Hx Prescription Drug Abuse: No - Advance Directive Resuscitation Status: Do Not Intubate Family History Family History: None Parental Family History Reviewed: Yes - Father bypass surgery, mother with breast cancer Children Family History Reviewed: Unknown Sibling(s) Family History Reviewed.: Yes Medication/Allergy Allergies/Adverse Reactions: No Known Allergies Allergy (Verified 10/15/18 11:33) Review of Systems Constitutional: ABSENT: fever(s), headache(s), night sweats Eyes: ABSENT: visual disturbances Ears: ABSENT: hearing changes Nose, Mouth, and Throat: ABSENT: sore throat Cardiovascular: PRESENT: dyspnea on exertion. ABSENT: chest pain Respiratory: PRESENT: dyspnea Gastrointestinal: ABSENT: abdominal pain, constipation, diarrhea, hematemesis, hematochezia, nausea, vomiting Musculoskeletal: ABSENT: joint swelling Neurological: ABSENT: abnormal gait, abnormal speech, confusion, dizziness, focal weakness, syncope Psychiatric: ABSENT: anxiety, depression, homidical ideation, suicidal ideation Physical Exam Vital Signs: Temp Pulse Resp BP Pulse Ox 97.8 F 85 19 103/59 L 100 10/17/18 08:20 10/15/18 11:37 10/17/18 07:01 10/17/18 07:01 10/17/18 07:01 Intake & Output 10/16/18 10/17/18 10/18/18 06:59 06:59 06:59 Intake Total 500 50 Balance 500 50 Weight 109.2 kg General appearance: PRESENT: no acute distress Head exam: PRESENT: atraumatic Eye exam: PRESENT: PERRLA Teeth exam: PRESENT: poor dentation Neck exam: ABSENT: carotid bruit, JVD, lymphadenopathy, thyromegaly Respiratory exam: PRESENT: clear to auscultation kaye. ABSENT: rales, rhonchi, wheezes Cardiovascular exam: PRESENT: RRR. ABSENT: diastolic murmur, rubs, systolic murmur GI/Abdominal exam: PRESENT: normal bowel sounds, soft, other - Patient has drained for gallbladder disease.. ABSENT: tenderness Extremities exam: PRESENT: +1 edema Neurological exam: PRESENT: alert, awake, oriented to person, oriented to place, oriented to time, oriented to situation, CN II-XII grossly intact. ABSENT: motor sensory deficit Psychiatric exam: PRESENT: appropriate affect, normal mood. ABSENT: homicidal ideation, suicidal ideation Results Laboratory Results: 10/16/18 09:35 10/16/18 09:35 10/15/18 12:20 Clean Catch Midstream Urine Culture - Final Escherichia Coli 10/15/18 10/15/18 10/15/18 13:23 13:23 15:20 Troponin I 1.300 Cancelled 1.230 NT-Pro-B Natriuret Pep 9390 H 10/15/18 10/16/18 21:04 09:35 Troponin I 1.050 0.677 NT-Pro-B Natriuret Pep Impressions: Chest X-Ray 10/15/18 12:48 IMPRESSION: Vascular congestion. Small pleural effusions. Assessment & Plan - Diagnosis (1) NSTEMI (non-ST elevated myocardial infarction) Is this a current diagnosis for this admission?: Yes Plan: 10/17/2018-patient was admitted for elevated troponins most likely secondary to CHF exacerbation. He is going to be placed in IMCU. Cardiac enzymes and EKGs are requested consultation with Dr. Nelson was requested echocardiogram was requested he was placed on aspirin 325 mg p.o. daily atorvastatin 20 mg p.o. nightly, Lovenox 70 mg subcu every 12 hours. Lipid panel will be done tomorrow. Placed on oxygen 2 L nasal cannula. He is also on SCDs. EKG shows sinus rhythm with nonspecific ST-T changes in the lateral leads. Patient is chest pain-free since the admission. (2) CHF (congestive heart failure) Qualifiers: Heart failure type: unspecified Heart failure chronicity: unspecified Qualified Code(s): I50.9 - Heart failure, unspecified Is this a current diagnosis for this admission?: Yes Plan: 10/17/2018 patient is given the history of congestive heart failure on Lasix at home. He came in with shortness of breath and chest x-ray shows increased pulmonary congestion. Admission BNP is 9390. Start him on Lasix 40 mg every 12 hours, plan to repeat the BNP tomorrow. Echocardiogram was requested. Daily weight was requested he is going to be on fluid restriction 1200 mL/day. (3) SOB (shortness of breath) Is this a current diagnosis for this admission?: Yes Plan: 10/17/2018 patient came in with shortness of breath sudden onset probably secondary to exacerbation of CHF. She is comfortably in the chair communicating well shortness of breath secondary to CHF is resolved. Pulse ox today is 98% on room air. Shortness of breath is resolved. (4) Hypoxia Is this a current diagnosis for this admission?: Yes Plan: 10/27/2018-patient came in with pulse ox of 91% on room air at the time of arrival in ER. Pulse ox was improved to 96% today. Cocci has resolved. Hypoxia may be secondary to CHF exacerbation. - Time Time Spent: 50 to 70 Minutes Medications reviewed and adjusted accordingly: Yes Anticipated discharge: Home
--- NOTE | 2018-10-17 11:41 | RADIOLOGY REPORT (SQ) ---
EXAM DESCRIPTION: CHEST SINGLE VIEW COMPLETED DATE/TIME: 10/17/2018 10:43 am REASON FOR STUDY: shortness of breath COMPARISON: Chest films 10/15/2018, 08/05/2018, 06/20/2018 EXAM PARAMETERS: NUMBER OF VIEWS: One view. TECHNIQUE: Single frontal radiographic view of the chest acquired. RADIATION DOSE: NA LIMITATIONS: None. FINDINGS: LUNGS AND PLEURA: Pulmonary vascular congestion is present with Tyrell lines indicating fl uid overload or congestive failure. There now trace bilateral pleural effusions. Findings are stabl e compared to 10/15/2018. No pneumothorax. MEDIASTINUM AND HILAR STRUCTURES: No masses. Contour normal. HEART AND VASCULAR STRUCTURES: Mild cardiomegaly, stable. Old faintly radiopaque coronary stents. BONES: No acute findings. HARDWARE: None in the chest. OTHER: No other significant finding. IMPRESSION: Pulmonary vascular congestion with trace pleural effusions and few Tyrell lines. Findin gs worrisome for mild fluid overload or congestive failure. This is similar compared to 10/15/[address] film TECHNICAL DOCUMENTATION: JOB ID: [id number] [employer]- All Rights Reserved Reading location - IP/workstation name: [email or web address]
--- NOTE | 2018-10-17 12:45 | EKG REPORT ---
SEVERITY:- ABNORMAL ECG - SINUS RHYTHM MULTIPLE VENTRICULAR PREMATURE COMPLEXES LEFT POSTERIOR FASCICULAR BLOCK ST DEPRESSION, CONSIDER ISCHEMIA, LAT LEADS : Confirmed by: Misty Brown 17-Oct-2018 12:44:06
[2018-10-17] MEDS: INSULIN LISPRO 100 UNIT/ML 3 ML VIAL SUBCUT SCH ×3 (13:32→21:05)
[2018-10-17] MEDS: ATORVASTATIN CALCIUM 10 MG TABLET PO SCH (21:15)
[2018-10-17] MEDS: ENOXAPARIN SODIUM INJ 80 MG/0.8 ML DISP.SYRIN SUBCUT SCH (21:16)
[2018-10-17] MEDS: METOPROLOL TARTRATE 25 MG TABLET PO SCH (21:16)
[2018-10-17] MEDS: FAMOTIDINE 20 MG TABLET PO SCH (21:16)
[2018-10-17] MEDS ORDERED: GABAPENTIN 300 MG CAPSULE PO SCH (22:00)
[2018-10-17] MEDS ORDERED: FUROSEMIDE INJ/PF 40 MG/4 ML SDV IV SCH (22:00)
[2018-10-18 04:19] LABS: HEMATOCRIT 27.6 % (37.9-51.0); HEMOGLOBIN 9.3 g/dL (13.5-17.0); MEAN CORPUSCULAR HEMOGLOBIN 28.4 pg (27.0-33.4); MEAN CORPUSCULAR HGB CONC 33.7 g/dL (32.0-36.0); MEAN CORPUSCULAR VOLUME 85 fl (80-97); PLATELET COUNT 354 10^3/uL (150-450); RED BLOOD COUNT 3.26 10^6/uL (4.35-5.55); RED CELL DISTRIBUTION WIDTH 18.1 % (11.5-14.0); WHITE BLOOD COUNT 8.3 10^3/uL (4.0-10.5)
[2018-10-18 04:32] LABS: ALANINE AMINOTRANSFERASE 43 U/L (21-72); ALBUMIN 3.1 g/dL (3.5-5.0); ALKALINE PHOSPHATASE 128 U/L (38-126); ANION GAP 11 (5-19); ASPARTATE AMINO TRANSFERASE 27 U/L (17-59); BILIRUBIN,DIRECT 0.3 mg/dL (0.0-0.4); BILIRUBIN,TOTAL 0.5 mg/dL (0.2-1.3); BLOOD UREA NITROGEN 44 mg/dL (7-20); CALCIUM 9.5 mg/dL (8.4-10.2); CARBON DIOXIDE 26 mmol/L (22-30); CHLORIDE 103 mmol/L (98-107); CHOLESTEROL 77.48 mg/dL (0-200); GLUCOSE 136 mg/dL (75-110); POTASSIUM 4.1 mmol/L (3.6-5.0); SODIUM 139.5 mmol/L (137-145); TOTAL PROTEIN 5.8 g/dL (6.3-8.2); TRIGLYCERIDES 154 mg/dL (<150)
[2018-10-18 04:45] LABS: DIRECT LDL 38 mg/dL (<100)
[2018-10-18 04:49] LABS: VLDL CHOLESTEROL 30.8 mg/dL (10-31)
[2018-10-18] MEDS: HYDROCODONE/ACETAMINOPHEN 10-325 MG TABLET PO PRN ×3 (05:09→21:08)
[2018-10-18] MEDS: INSULIN LISPRO 100 UNIT/ML 3 ML VIAL SUBCUT SCH ×4 (08:12→21:14)
[2018-10-18] MEDS: TICAGRELOR 90 MG TABLET PO SCH (08:12)
[2018-10-18] MEDS ORDERED: GLYCERIN/WITCH HAZEL LEAF 1 EACH MED..PAD TP PRN ×2 (09:05→10:19)
[2018-10-18] MEDS ORDERED: PRAMOXINE HCL/MINERAL OIL/ZNOX OINT 28.3 GM PR PRN (09:30)
[2018-10-18] MEDS: ASPIRIN 325 MG TABLET PO SCH (09:34)
[2018-10-18] MEDS: DOCUSATE SODIUM 100 MG CAPSULE PO SCH (09:34)
[2018-10-18] MEDS: POLYETHYLENE GLYCOL 3350 POWDER 17 GM/1 PACKET PO SCH (09:35)
[2018-10-18] MEDS: METOPROLOL TARTRATE 25 MG TABLET PO SCH ×2 (09:35→21:09)
[2018-10-18] MEDS: FAMOTIDINE 20 MG TABLET PO SCH ×2 (09:35→21:09)
[2018-10-18] MEDS: FUROSEMIDE INJ/PF 40 MG/4 ML SDV IV SCH ×2 (09:37→17:03)
[2018-10-18] MEDS: ENOXAPARIN SODIUM INJ 80 MG/0.8 ML DISP.SYRIN SUBCUT SCH ×2 (09:38→21:08)
--- NOTE | 2018-10-18 09:46 | PDOC PROGRESS REPORT ---
Subjective Progress Note for:: 10/18/18 Subjective:: 68 year old male with history of congestive heart failure, coronary artery disease status post multiple stent placements, gallbladder disease with gallbladder drain, chronic pain syndrome, hypertension, diabetes mellitus, history of [place] came to the emergency room 2 days ago with complaints of sudden onset of cold and shortness of breath. He woke up around 8 AM with cold symptoms and shortness of breath decided to came to the emergency room for further evaluation. He denies any chest pains denies any nausea denies any headaches denies any vomiting diarrhea no constipation no sweating no other complaints. He was evaluated in the emergency room found to have initial troponins are elevated at 1.3 and patient was also found to be hypoxic decision was made to transfer the patient to [facility]. Patient is waiting for the bed for the last 2 days and there is no possibility of bed for the next 24- 48 hours. In the meantime the troponins are trending down latest troponin is 0.677. Dr. Nelson was consulted he thinks elevated troponins most likely secondary to CHF exacerbation and he agreed to do the consultation and recommended hospitalist can be admitt the patient. I went to talk to the patient patient is comfortably in the chair not in distress able to provide a good history. Agreed to stay here in this hospital for further management. He want to be DNI but wants resuscitation measures like a chest compressions. 10/18/2000 [id number] male with history of congestive heart failure coronary artery disease status post multiple stents placements recent history of stress test admitted for elevated troponins. He was chest pain-free throughout the hospital stay. He waited for transfer to [facility] for 2 days in the emergency room finally we admitted him after discussion with Dr. Nelson. His troponins have trended down. The textile engineer impression is elevated troponins most likely secondary to congestive heart failure exacerbation. Patient denies any chest pains today. Asymptomatic. No acute events in the last 24 hours. Reason For Visit: NON STEMI/CHF Physical Exam Vital Signs: Temp Pulse Resp BP Pulse Ox 98.3 F 77 16 110/64 98 10/18/18 07:33 10/18/18 07:33 10/18/18 07:33 10/18/18 07:33 10/18/18 07:33 Intake & Output 10/17/18 10/18/18 10/19/18 06:59 06:59 06:59 Intake Total 50 Output Total 800 Balance 50 -800 Weight 105.3 kg General appearance: PRESENT: no acute distress Head exam: PRESENT: atraumatic Eye exam: PRESENT: PERRLA Mouth exam: PRESENT: dry mucosa Neck exam: ABSENT: carotid bruit, JVD, lymphadenopathy, thyromegaly Respiratory exam: PRESENT: decreased breath sounds Cardiovascular exam: PRESENT: tachycardia GI/Abdominal exam: PRESENT: normal bowel sounds, soft, other - Patient has drain for the chronic gallbladder disease.. ABSENT: distended, guarding, mass, organolmegaly, rebound, tenderness Neurological exam: PRESENT: alert, awake, oriented to person, oriented to place, oriented to time, oriented to situation, CN II-XII grossly intact. ABSENT: motor sensory deficit Psychiatric exam: PRESENT: appropriate affect, normal mood. ABSENT: homicidal ideation, suicidal ideation Results Laboratory Results: 10/18/18 04:11 10/18/18 04:11 10/18/18 10/18/18 04:11 04:11 WBC 8.3 RBC 3.26 L Hgb 9.3 L Hct 27.6 L MCV 85 MCH 28.4 MCHC 33.7 RDW 18.1 H Plt Count 354 Sodium 139.5 Potassium 4.1 Chloride 103 Carbon Dioxide 26 Anion Gap 11 BUN 44 H Creatinine 1.48 H Est GFR ( Amer) 57 L Est GFR (Non-Af Amer) 47 L Glucose 136 H Calcium 9.5 Total Bilirubin 0.5 AST 27 ALT 43 Alkaline Phosphatase 128 H Total Protein 5.8 L Albumin 3.1 L Triglycerides 154 H Cholesterol 77.48 LDL Cholesterol Direct 38 VLDL Cholesterol 30.8 HDL Cholesterol 21 L 10/15/18 12:20 Clean Catch Midstream Urine Culture - Final Escherichia Coli 10/15/18 10/15/18 10/15/18 13:23 13:23 15:20 Troponin I 1.300 Cancelled 1.230 NT-Pro-B Natriuret Pep 9390 H 10/15/18 10/16/18 10/17/18 21:04 09:35 11:24 Troponin I 1.050 0.677 NT-Pro-B Natriuret Pep 6180 H 10/18/18 04:11 Troponin I NT-Pro-B Natriuret Pep 8730 H Impressions: Chest X-Ray 10/17/18 00:00 IMPRESSION: Pulmonary vascular congestion with trace pleural effusions and few Tyrell lines. Findings worrisome for mild fluid overload or congestive failure. This is similar compared to 10/15/2018 chest film Assessment & Plan - Diagnosis (1) NSTEMI (non-ST elevated myocardial infarction) Is this a current diagnosis for this admission?: Yes Plan: 10/17/2018-patient was admitted for elevated troponins most likely secondary to CHF exacerbation. He is going to be placed in IMCU. Cardiac enzymes and EKGs are requested consultation with Dr. Nelson was requested echocardiogram was requested he was placed on aspirin 325 mg p.o. daily atorvastatin 20 mg p.o. nightly, Lovenox 70 mg subcu every 12 hours. Lipid panel will be done tomorrow. Placed on oxygen 2 L nasal cannula. He is also on SCDs. EKG shows sinus rhythm with nonspecific ST-T changes in the lateral leads. Patient is chest pain-free since the admission. 10/18/2018-patient was admitted with elevated troponins most likely secondary to CHF exacerbation. Patient waited for 2 days to be transferred to [facility] for elevated troponins and the gradually troponins are trending down ER physician has a discussion with Dr. Nelson and he thinks elevated troponins most likely secondary to CHF exacerbation. I completely agree with him. Patient is chest pain-free. We going to do the another set of cardiac enzymes today. BNP is going up to 8700. Presently on Lasix 40 mg every 8 hours. Patient is on aspirin, Brilinta, on Lovenox 70 mcq 12 hrs . He is also on atorvastatin. (2) CHF (congestive heart failure) Qualifiers: Heart failure type: unspecified Heart failure chronicity: unspecified Qualified Code(s): I50.9 - Heart failure, unspecified Is this a current diagnosis for this admission?: Yes Plan: 10/17/2018 patient is given the history of congestive heart failure on Lasix at home. He came in with shortness of breath and chest x-ray shows increased pulmonary congestion. Admission BNP is 9390. Start him on Lasix 40 mg every 12 hours, plan to repeat the BNP tomorrow. Echocardiogram was requested. Daily weight was requested he is going to be on fluid restriction 1200 mL/day. 10/18/2018 patient has history of congestive heart failure getting Lasix 40 mg p.o. daily twice a day. We started him on Lasix IV 40 mg twice a day BNP went up to 8730 follow-up chest x-ray shows persistent vascular congestion. Plan is to increase the Lasix to 40 mg 3 times a day. Do the BNP and chest x-ray in the morning. He is on fluid restriction 1200 mL/day. Echocardiogram report is pending. (3) SOB (shortness of breath) Is this a current diagnosis for this admission?: Yes Plan: 10/17/2018 patient came in with shortness of breath sudden onset probably secondary to exacerbation of CHF. She is comfortably in the chair communicating well shortness of breath secondary to CHF is resolved. Pulse ox today is 98% on room air. Shortness of breath is resolved. 10/18/2018 patient initially came in with shortness of breath most likely secondary to CHF exacerbation. Shortness of breath was resolved. (4) Hypoxia Is this a current diagnosis for this admission?: Yes Plan: 10/17/2018-patient came in with pulse ox of 91% on room air at the time of arrival in ER. Pulse ox was improved to 96% today. Cocci has resolved. Hypoxia may be secondary to CHF exacerbation. 10/18/2018-patient came in with hypoxia most likely secondary to CHF exacerbation pulse ox today on room air is 98% hypoxia is resolved. - Time Time Spent with patient: 15-24 minutes Medications reviewed and adjusted accordingly: Yes Anticipated discharge: Home
[2018-10-18] MEDS ORDERED: LEVOFLOXACIN 500 MG TABLET PO SCH (10:00)
[2018-10-18] MEDS ORDERED: ENOXAPARIN SODIUM INJ 40 MG/0.4 ML DISP.SYRIN SUBCUT SCH (10:00)
[2018-10-18] MEDS ORDERED: PRAMOXINE HCL/MINERAL OIL/ZNOX OINT 28.3 GM PR SCH (10:00)
[2018-10-18 10:16] LABS: CREATINE KINASE MB 1.71 ng/mL (<4.55)
[2018-10-18 10:20] LABS: TROPONIN I 0.314 ng/mL
[2018-10-18 10:46] LABS: CREATINE KINASE MB 1.99 ng/mL (<4.55); TROPONIN I 0.3 ng/mL
[2018-10-18] MEDS: SULFAMETHOXAZOLE/TRIMETHOPRIM 800-160 MG TABLET PO SCH ×2 (12:24→21:08)
[2018-10-18] MEDS: GABAPENTIN 100 MG CAPSULE PO SCH ×2 (13:43→21:09)
[2018-10-18 16:52] LABS: CREATINE KINASE MB 2.63 ng/mL (<4.55); TROPONIN I 0.291 ng/mL
[2018-10-18] MEDS: BISACODYL 5 MG TABEC PO PRN (16:56)
[2018-10-18] MEDS: GLYCERIN/WITCH HAZEL LEAF 1 EACH MED..PAD TP SCH (17:04)
--- NOTE | 2018-10-18 20:11 | EKG REPORT ---
SEVERITY:- BORDERLINE ECG - SINUS RHYTHM ATRIAL PREMATURE COMPLEX CONSIDER RIGHT VENTRICULAR HYPERTROPHY BORDERLINE T ABNORMALITIES, INFERIOR LEADS : Confirmed by: Misty Brown 18-Oct-2018 20:10:11
[2018-10-18] MEDS: ATORVASTATIN CALCIUM 10 MG TABLET PO SCH (21:08)
[2018-10-19] MEDS: FUROSEMIDE INJ/PF 40 MG/4 ML SDV IV SCH ×2 (02:27→09:48)
[2018-10-19] MEDS: GABAPENTIN 100 MG CAPSULE PO SCH (05:18)
[2018-10-19] MEDS: HYDROCODONE/ACETAMINOPHEN 10-325 MG TABLET PO PRN ×2 (05:20→09:46)
[2018-10-19 07:11] LABS: ABSOLUTE BASOPHILS # (AUTO) 0.1 10^3/uL (0.0-0.2); ABSOLUTE EOSINOPHILS # (AUTO) 0.2 10^3/uL (0.0-0.6); ABSOLUTE LYMPHOCYTES (AUTO) 1.6 10^3/uL (0.5-4.7); ABSOLUTE NEUT (AUTO) 4.2 10^3/uL (1.7-8.2); BASOPHILS % (AUTO) 1.8 % (0-2); EOSINOPHILS % (AUTO) 3.3 % (0-6); HEMATOCRIT 27.6 % (37.9-51.0); HEMOGLOBIN 9.1 g/dL (13.5-17.0); LYMPHOCYTES % (AUTO) 21.9 % (13-45); MEAN CORPUSCULAR HEMOGLOBIN 28.1 pg (27.0-33.4); MEAN CORPUSCULAR HGB CONC 33.1 g/dL (32.0-36.0); MEAN CORPUSCULAR VOLUME 85 fl (80-97); MONOCYTES % (AUTO) 14.4 % (3-13); PLATELET COUNT 337 10^3/uL (150-450); RED BLOOD COUNT 3.25 10^6/uL (4.35-5.55); SEGMENTED NEUTROPHILS % (AUTO) 58.6 % (42-78); TOTAL CELLS COUNTED % (AUTO) 100 %; WHITE BLOOD COUNT 7.2 10^3/uL (4.0-10.5)
[2018-10-19 07:33] LABS: ALANINE AMINOTRANSFERASE 40 U/L (21-72); ALBUMIN 3.1 g/dL (3.5-5.0); ALKALINE PHOSPHATASE 130 U/L (38-126); ANION GAP 12 (5-19); ASPARTATE AMINO TRANSFERASE 24 U/L (17-59); BILIRUBIN,DIRECT 0.3 mg/dL (0.0-0.4); BILIRUBIN,TOTAL 0.5 mg/dL (0.2-1.3); BLOOD UREA NITROGEN 48 mg/dL (7-20); CALCIUM 9.3 mg/dL (8.4-10.2); CARBON DIOXIDE 25 mmol/L (22-30); CHLORIDE 101 mmol/L (98-107); CHOLESTEROL 73.47 mg/dL (0-200); GLUCOSE 117 mg/dL (75-110); POTASSIUM 4.2 mmol/L (3.6-5.0); SODIUM 137.9 mmol/L (137-145); TOTAL PROTEIN 5.8 g/dL (6.3-8.2); TRIGLYCERIDES 173 mg/dL (<150)
[2018-10-19 07:44] LABS: DIRECT LDL 38 mg/dL (<100)
[2018-10-19 07:50] LABS: VLDL CHOLESTEROL 34.6 mg/dL (10-31)
[2018-10-19] MEDS: TICAGRELOR 90 MG TABLET PO SCH (08:33)
[2018-10-19] MEDS: INSULIN LISPRO 100 UNIT/ML 3 ML VIAL SUBCUT SCH ×2 (08:36→11:53)
[2018-10-19] MEDS: ASPIRIN 325 MG TABLET PO SCH (09:46)
[2018-10-19] MEDS: SULFAMETHOXAZOLE/TRIMETHOPRIM 800-160 MG TABLET PO SCH (09:46)
[2018-10-19] MEDS: POLYETHYLENE GLYCOL 3350 POWDER 17 GM/1 PACKET PO SCH (09:46)
[2018-10-19] MEDS: DOCUSATE SODIUM 100 MG CAPSULE PO SCH (09:46)
[2018-10-19] MEDS: FAMOTIDINE 20 MG TABLET PO SCH (09:47)
[2018-10-19] MEDS: BISACODYL 5 MG TABEC PO PRN (09:47)
[2018-10-19] MEDS: ENOXAPARIN SODIUM INJ 80 MG/0.8 ML DISP.SYRIN SUBCUT SCH (09:48)
[2018-10-19] MEDS: GLYCERIN/WITCH HAZEL LEAF 1 EACH MED..PAD TP SCH (09:49)
[2018-10-19 11:37] VITALS: BP 102/50
[2018-10-19] MEDS: METOPROLOL TARTRATE 25 MG TABLET PO SCH (11:44)
--- NOTE | 2018-10-19 13:05 | PDOC DISCHARGE SUMMARY ---
General - Admit/Disc Date/PCP Admission Date/Primary Care Provider: 10/17/18 09:48 GUILLE FRANZ PA-C Discharge Date: 10/19/18 - Discharge Diagnosis (1) NSTEMI (non-ST elevated myocardial infarction) Is this a current diagnosis for this admission?: Yes Summary: 10/17/2018-patient was admitted for elevated troponins most likely secondary to CHF exacerbation. He is going to be placed in IMCU. Cardiac enzymes and EKGs are requested consultation with Dr. Nelson was requested echocardiogram was requested he was placed on aspirin 325 mg p.o. daily atorvastatin 20 mg p.o. nightly, Lovenox 70 mg subcu every 12 hours. Lipid panel will be done tomorrow. Placed on oxygen 2 L nasal cannula. He is also on SCDs. EKG shows sinus rhythm with nonspecific ST-T changes in the lateral leads. Patient is chest pain-free since the admission. 10/18/2018-patient was admitted with elevated troponins most likely secondary to CHF exacerbation. Patient waited for 2 days to be transferred to [facility] for elevated troponins and the gradually troponins are trending down ER physician has a discussion with Dr. Nelson and he thinks elevated troponins most likely secondary to CHF exacerbation. I completely agree with him. Patient is chest pain-free. We going to do the another set of cardiac enzymes today. BNP is going up to 8700. Presently on Lasix 40 mg every 8 hours. Patient is on aspirin, Brilinta, on Lovenox 70 mcq 12 hrs . He is also on atorvastatin. 10/19/2018-patient was admitted with elevated troponins most likely secondary to CHF exacerbation. No complaints of chest pains since the hospitalization. Troponin on admission is 1.3 gradually came down to 0.291. Acute EKG changes. Patient has an appointment with Dr. Qi mcfarland tomorrow in his office. Patient was advised to be compliant with medications , if started having chest pains strongly advised him to come to the ER or call the EMS as soon as possible. Patient understood and verbalized response. (2) CHF (congestive heart failure) Is this a current diagnosis for this admission?: Yes Summary: 10/17/2018 patient is given the history of congestive heart failure on Lasix at home. He came in with shortness of breath and chest x-ray shows increased pulmonary congestion. Admission BNP is 9390. Start him on Lasix 40 mg every 12 hours, plan to repeat the BNP tomorrow. Echocardiogram was requested. Daily weight was requested he is going to be on fluid restriction 1200 mL/day. 10/18/2018 patient has history of congestive heart failure getting Lasix 40 mg p.o. daily twice a day. We started him on Lasix IV 40 mg twice a day BNP went up to 8730 follow-up chest x-ray shows persistent vascular congestion. Plan is to increase the Lasix to 40 mg 3 times a day. Do the BNP and chest x-ray in the morning. He is on fluid restriction 1200 mL/day. Echocardiogram report is pending. 10/19/2018-patient has history of chronic congestive heart failure. He is on Lasix 40 mg twice a day. BNP came down to 6700. Patient is does not have any shortness of breath. He is on fluid restriction. Echocardiogram was done unfortunately I do not have the report available. (3) SOB (shortness of breath) Is this a current diagnosis for this admission?: Yes (4) Hypoxia Is this a current diagnosis for this admission?: Yes Summary: 10/17/2018-patient came in with pulse ox of 91% on room air at the time of arrival in ER. Pulse ox was improved to 96% today. Cocci has resolved. Hypoxia may be secondary to CHF exacerbation. 10/18/2018-patient came in with hypoxia most likely secondary to CHF exacerbation pulse ox today on room air is 98% hypoxia is resolved. 10/19/2018-patient came in with hypoxia most likely secondary to CHF exacerbation pulse ox today is 100% on room air. Hypoxia is resolved. - Additional Information Resuscitation Status: Do Not Intubate Discharge Diet: Diabetic Discharge Activity: Activity As Tolerated Prescriptions: Sulfamethoxazole/Trimethoprim [Septra-Ds 800-160 mg Tablet] 1 tab PO Q12 #14 tablet Home Medications: Aspirin [Lo-Dose Aspirin EC] 81 mg PO QAM 10/17/18 Atorvastatin Calcium [Lipitor 20 mg Tablet] 40 mg PO QHS 10/17/18 Cholecalciferol (Vitamin D3) [Vitamin D3 2000 unit Tablet] 2,000 unit PO QAM 10/17/18 Furosemide [Lasix 40 mg Tablet] 40 mg PO BID 10/17/18 Gabapentin [Neurontin 100 mg Capsule] 100 mg PO Q8 10/17/18 Hydrocodone/Acetaminophen [[place] 7.5-325 Tablet] 1 tab PO Q6HP PRN 10/17/18 Insulin Glargine,Hum.rec.anlog [Lantus Insulin 100 Unit/mL] 20 units SQ QPM 10/17/18 Metoprolol Succinate [Toprol Xl 25 mg Tab.sr] 25 mg PO DAILY 10/17/18 Nitroglycerin [Nitrostat 0.4 mg (1/150 Gr) Tabs 25/Bottle] 0.4 mg SL Q5MP PRN Ticagrelor [Brilinta 90 mg Tablet] 90 mg PO BID 10/17/18 Sulfamethoxazole/Trimethoprim [Septra-Ds 800-160 mg Tablet] 1 tab PO Q12 #14 tablet 10/19/18 History of Present Illness History of Present Illness: CHASE LIPSCOMB is a 68 year old male with history of congestive heart failure, coronary artery disease status post multiple stent placements, gallbladder disease with gallbladder drain, chronic pain syndrome, hypertension, diabetes mellitus, history of [place] came to the emergency room 2 days ago with complaints of sudden onset of cold and shortness of breath. He woke up around 8 AM with cold symptoms and shortness of breath decided to came to the emergency room for further evaluation. He denies any chest pains denies any nausea denies any headaches denies any vomiting diarrhea no constipation no sweating no other complaints. He was evaluated in the emergency room found to have initial troponins are elevated at 1.3 and patient was also found to be hypoxic decision was made to transfer the patient to [facility] Patient is waiting for the bed for the last 2 days and there is no possibility of bed for the next 24- 48 hours. In the meantime the troponins are trending down latest troponin is 0.677. Dr. Nelson was consulted he thinks elevated troponins most likely secondary to CHF exacerbation and he agreed to do the consultation and recommended hospitalist can be admitt the patient. I went to talk to the patient patient is comfortably in the chair not in distress able to provide a good history. Agreed to stay here in this hospital for further management. He want to be DNI but wants resuscitation measures like a chest compressions. Physical Exam Vital Signs: Temp Pulse Resp BP Pulse Ox 97.6 F 78 18 102/50 L 100 10/19/18 11:37 10/19/18 11:37 10/19/18 11:37 10/19/18 11:37 10/19/18 11:37 Intake & Output 10/18/18 10/19/18 10/20/18 06:59 06:59 06:59 Intake Total 826 Output Total 800 1150 300 Balance -800 -324 -300 Weight 105.3 kg 238.1 kg General appearance: PRESENT: no acute distress Head exam: PRESENT: atraumatic Eye exam: PRESENT: PERRLA Mouth exam: PRESENT: moist, tongue midline Neck exam: ABSENT: carotid bruit, JVD, lymphadenopathy, thyromegaly Respiratory exam: PRESENT: decreased breath sounds Cardiovascular exam: PRESENT: RRR. ABSENT: diastolic murmur, rubs, systolic murmur GI/Abdominal exam: PRESENT: normal bowel sounds, soft. ABSENT: distended, guarding, mass, organolmegaly, rebound, tenderness Extremities exam: PRESENT: full ROM. ABSENT: calf tenderness, clubbing, pedal edema Neurological exam: PRESENT: alert, awake, oriented to person, oriented to place, oriented to time, oriented to situation, CN II-XII grossly intact. ABSENT: motor sensory deficit Psychiatric exam: PRESENT: appropriate affect, normal mood. ABSENT: homicidal ideation, suicidal ideation Results Laboratory Results: 10/19/18 05:53 10/19/18 05:53 10/19/18 10/19/18 05:53 05:53 WBC 7.2 RBC 3.25 L Hgb 9.1 L Hct 27.6 L MCV 85 MCH 28.1 MCHC 33.1 RDW 18.0 H Plt Count 337 Seg Neutrophils % 58.6 Lymphocytes % 21.9 Monocytes % 14.4 H Eosinophils % 3.3 Basophils % 1.8 Absolute Neutrophils 4.2 Absolute Lymphocytes 1.6 Absolute Monocytes 1.0 Absolute Eosinophils 0.2 Absolute Basophils 0.1 Sodium 137.9 Potassium 4.2 Chloride 101 Carbon Dioxide 25 Anion Gap 12 BUN 48 H Creatinine 1.71 H Est GFR ( Amer) 48 L Est GFR (Non-Af Amer) 40 L Glucose 117 H Calcium 9.3 Magnesium 2.0 Total Bilirubin 0.5 AST 24 ALT 40 Alkaline Phosphatase 130 H Total Protein 5.8 L Albumin 3.1 L Triglycerides 173 H Cholesterol 73.47 LDL Cholesterol Direct 38 VLDL Cholesterol 34.6 H HDL Cholesterol 17 L 10/15/18 10/15/18 10/15/18 13:23 13:23 15:20 Creatine Kinase CK-MB (CK-2) Troponin I 1.300 Cancelled 1.230 NT-Pro-B Natriuret Pep 9390 H 10/15/18 10/16/18 10/17/18 21:04 09:35 11:24 Creatine Kinase CK-MB (CK-2) Troponin I 1.050 0.677 NT-Pro-B Natriuret Pep 6180 H 10/18/18 10/18/18 10/18/18 04:11 04:11 04:11 Creatine Kinase 41 L CK-MB (CK-2) 1.71 Troponin I 0.314 NT-Pro-B Natriuret Pep 8730 H 10/18/18 10/18/18 10/18/18 10:11 10:11 16:17 Creatine Kinase 38 L 46 L CK-MB (CK-2) 1.99 Troponin I 0.300 NT-Pro-B Natriuret Pep 10/18/18 10/19/18 16:17 05:53 Creatine Kinase CK-MB (CK-2) 2.63 Troponin I 0.291 NT-Pro-B Natriuret Pep 6210 H Impressions: Chest X-Ray 10/17/18 00:00 IMPRESSION: Pulmonary vascular congestion with trace pleural effusions and few Tyrell lines. Findings worrisome for mild fluid overload or congestive failure. This is similar compared to 10/15/2018 chest film Qualifiers - * PATIENT BEING DISCHARGED WITH ANY OF THE FOLLOWING DIAGNOSIS: No VTE patient discharged on overlapping Therapy?: No
--- NOTE | 2018-10-20 11:07 | XCELERA REPORT ---
[address] [address] Transthoracic Echocardiogram Report Name: CHASE LIPSCOMB Age: 68 yrs Gender: Male : 1950 Patient Status: Inpatient Patient Location: [place] [address]^A Study Date: 10/17/2018 03:35 PM History: CHF, CAD Height: 69 in Weight: 240 lb BSA: 2.2 m2 BP: 9/ mmHg Procedure: The study was technically difficult with many images being suboptimal in quality. Reason For Study: chf Ordering Physician: ASHWINI BANUELOS Performed By: Jin Guadalupe Interpretation Summary Poor quality study with suboptimal acoustic windows. Poor endocardial definition, Contrast study was not perfromed. The study was technically difficult with many images being suboptimal in quality. The left ventricle is mildly dilated. Left ventricular systolic function is mildly reduced. LV EF is 40-45% The right ventricular systolic function is normal. There is a moderate amount of mitral regurgitation There is no aortic valve stenosis There is a trace to mild amount of tricuspid regurgitation There is moderate pulmonary hypertension by echo There is no pericardial effusion. Would recommend repeat study with contrast. MMode/2D Measurements & Calculations RVDd: 4.3 cm LVPWd: 0.87 cm Ao root diam: 3.0 cm LVOT diam: 1.6 cm IVSd: 0.86 cm Ao root area: 7.1 cm2 LVOT area: 2.0 cm2 LA dimension: 5.0 cm Doppler Measurements & Calculations MV E max emperatriz: MV P1/2t max emperatriz: Ao V2 max: LV V1 max P.4 cm/sec 132.5 cm/sec 107.4 cm/sec 2.8 mmHg MV P1/2t: 48.5 msec Ao max PG: LV V1 max: 4.6 mmHg 83.0 cm/sec MVA(P1/2t): 4.5 cm2 MV dec slope: VIPIN(V,D): 1.6 cm2 800.5 cm/sec2 MV dec time: 0.13 sec PA V2 max: PI end-d emperatriz: TR max emperatriz: MV P1/2t-pr_phl: 72.9 cm/sec 172.4 cm/sec 406.1 cm/sec 48.5 msec PA max P.1 mmHg TR max P.0 mmHg Left Ventricle The left ventricle is mildly dilated. Left ventricular systolic function is mildly reduced. LV EF is 40-45%. LV diastolic function could not be adequately assessed. Not all wall segments were well visualized. There is mild global hypokinesis of the left ventricle. Right Ventricle The right ventricle is grossly normal size. The right ventricular systolic function is normal. Atria The right atrium is mildly dilated. The left atrium is mildly dilated. Interarterial septum not well visualized and not well dopplered. Cannot comment on ASD/PFO presence. Mitral Valve The mitral valve is grossly normal. There is a moderate amount of mitral regurgitation. Aortic Valve The aortic valve is calcified. There is no aortic valve stenosis. No aortic regurgitation is present. Tricuspid Valve The tricuspid valve is not well visualized, but is grossly normal. There is a trace to mild amount of tricuspid regurgitation. There is moderate pulmonary hypertension by echo. Best estimated right ventricular systolic pressure is elevated at >60mmHg. Pulmonic Valve The pulmonic valve is not well visualized. There is a mild to moderate amount of pulmonic regurgitation. Great Vessels The aortic root is normal size. Effusions There is no pericardial effusion. : ASHWINI BANUELOS Anil
== END 2018-10-19 13:50 | disposition home or self-care (01) | DRG 282 ==
LOC: ER 11:30 → EH 10-17 09:48 → 3S 10-17 20:34
PROVIDERS: ADMIT Internal Medicine; ATTEND Internal Medicine
DX: I21.A1 Myocardial infarction type 2 (principal); I50.9 Heart failure, unspecified; R09.02 Hypoxemia; I25.10 Atherosclerotic heart disease of native coronary artery without angina pectoris; E78.5 Hyperlipidemia, unspecified; E11.40 Type 2 diabetes mellitus with diabetic neuropathy, unspecified
CPT/HCPCS: 36415; 71045; 80053; 80061; 81001; 82550; 82553; 82803; 82962; 83036; 83605; 83690; 83735; 83880; 84484; 85025; 85027; 85610; 87040; 87086; 87088; 87186; 93005; 93010; 93306; J0696; J1650; J1815; J1940; J3490; J7040

== ENCOUNTER → 2018-10-29 | Outpatient (CLI) | payer OTHER, MEDICARE ==
[2018-10-29 15:18] LABS: ABSOLUTE BASOPHILS # (AUTO) 0.1 10^3/uL (0.0-0.2); ABSOLUTE LYMPHOCYTES (AUTO) 2.1 10^3/uL (0.5-4.7); ABSOLUTE MONOCYTES (AUTO) 1.1 10^3/uL (0.1-1.4); BASOPHILS % (AUTO) 1.2 % (0-2); EOSINOPHILS % (AUTO) 0.5 % (0-6); HEMATOCRIT 29.6 % (37.9-51.0); LYMPHOCYTES % (AUTO) 29.3 % (13-45); MEAN CORPUSCULAR HGB CONC 33.8 g/dL (32.0-36.0); MEAN CORPUSCULAR VOLUME 86 fl (80-97); MONOCYTES % (AUTO) 14.6 % (3-13); PLATELET COUNT 332 10^3/uL (150-450); RED BLOOD COUNT 3.45 10^6/uL (4.35-5.55); RED CELL DISTRIBUTION WIDTH 18.8 % (11.5-14.0); SEGMENTED NEUTROPHILS % (AUTO) 54.4 % (42-78); TOTAL CELLS COUNTED % (AUTO) 100 %; WHITE BLOOD COUNT 7.3 10^3/uL (4.0-10.5)
[2018-10-29 15:26] LABS: APPEARANCE,URINE CLEAR; BILIRUBIN,URINE NEGATIVE (NEGATIVE); COLOR,URINE YELLOW; GLUCOSE, URINE NEGATIVE (NEGATIVE); KETONES,URINE NEGATIVE (NEGATIVE); LEUKOCYTE ESTERASE,URINE NEGATIVE (NEGATIVE); NITRITE,URINE NEGATIVE (NEGATIVE); PROTEIN,URINE NEGATIVE (NEGATIVE); URINE SPECIFIC GRAVITY 1.009; UROBILINOGEN,URINE NEGATIVE mg/dL (<2.0)
[2018-10-29 15:59] LABS: ALANINE AMINOTRANSFERASE 23 U/L (21-72); ALKALINE PHOSPHATASE 122 U/L (38-126); ANION GAP 13 (5-19); ASPARTATE AMINO TRANSFERASE 28 U/L (17-59); BILIRUBIN,DIRECT 0.4 mg/dL (0.0-0.4); BILIRUBIN,TOTAL 0.4 mg/dL (0.2-1.3); BLOOD UREA NITROGEN 58 mg/dL (7-20); CALCIUM 9.7 mg/dL (8.4-10.2); CARBON DIOXIDE 27 mmol/L (22-30); CHLORIDE 98 mmol/L (98-107); GLUCOSE 117 mg/dL (75-110); PHOSPHORUS 5.8 mg/dL (2.5-4.5); POTASSIUM 4.6 mmol/L (3.6-5.0); SODIUM 138.4 mmol/L (137-145); TOTAL PROTEIN 6.7 g/dL (6.3-8.2)
== END ==
LOC: OD 14:34
PROVIDERS: ATTEND Internal Medicine Nephrology
DX: E11.22 Type 2 diabetes mellitus with diabetic chronic kidney disease (principal); N18.3 Chronic kidney disease, stage 3 (moderate); I12.9 Hypertensive chronic kidney disease with stage 1 through stage 4 chronic kidney disease, or unspecified chronic kidney disease
CPT/HCPCS: 36415; 80053; 81001; 83735; 83970; 84100; 85025

== ENCOUNTER → 2018-11-07 | Outpatient (CLI) | payer OTHER, MEDICARE ==
[2018-11-07 13:15] LABS: HEMATOCRIT 28.2 % (37.9-51.0); HEMOGLOBIN 9.4 g/dL (13.5-17.0); MEAN CORPUSCULAR HEMOGLOBIN 28.6 pg (27.0-33.4); MEAN CORPUSCULAR HGB CONC 33.4 g/dL (32.0-36.0); MEAN CORPUSCULAR VOLUME 86 fl (80-97); PLATELET COUNT 377 10^3/uL (150-450); RED BLOOD COUNT 3.29 10^6/uL (4.35-5.55); RED CELL DISTRIBUTION WIDTH 18.5 % (11.5-14.0); WHITE BLOOD COUNT 7.8 10^3/uL (4.0-10.5)
[2018-11-07 13:35] LABS: ALANINE AMINOTRANSFERASE 33 U/L (21-72); ALBUMIN 3.8 g/dL (3.5-5.0); ALKALINE PHOSPHATASE 119 U/L (38-126); ANION GAP 15 (5-19); ASPARTATE AMINO TRANSFERASE 21 U/L (17-59); BILIRUBIN,DIRECT 0.2 mg/dL (0.0-0.4); BILIRUBIN,TOTAL 0.5 mg/dL (0.2-1.3); BLOOD UREA NITROGEN 47 mg/dL (7-20); CALCIUM 9.6 mg/dL (8.4-10.2); CARBON DIOXIDE 24 mmol/L (22-30); CHLORIDE 102 mmol/L (98-107); GLUCOSE 153 mg/dL (75-110); IRON(TIBC) 43.5 ug/dL (49-181); SODIUM 140.5 mmol/L (137-145); TOTAL PROTEIN 6.6 g/dL (6.3-8.2)
[2018-11-10 12:37] LABS: A/G RATIO 0.9 (0.7-1.7); ALBUMIN 2 3.1 g/dL (2.9-4.4); ALPHA-2-GLOBULIN 2 1.1 g/dL (0.4-1.0); GLOBULIN TOTAL 3.6 g/dL (2.2-3.9); MONOCLONAL SPIKE 0.3 g/dL (Not Observ); PROTEIN TOTAL SERUM 6.7 g/dL (6.0-8.5)
== END ==
LOC: OD 11:56
PROVIDERS: ATTEND Internal Medicine Nephrology
DX: E13.40 Other specified diabetes mellitus with diabetic neuropathy, unspecified (principal); N18.3 Chronic kidney disease, stage 3 (moderate); D63.1 Anemia in chronic kidney disease; E13.22 Other specified diabetes mellitus with diabetic chronic kidney disease
CPT/HCPCS: 36415; 80053; 82728; 83540; 83550; 84165; 84443; 85027

== ENCOUNTER 2018-11-20 14:55 | Emergency (ER) | payer OTHER, MEDICARE ==
--- NOTE | 2018-11-20 17:58 | ER Document Report ---
ED Medical Screen (RME) - General Chief Complaint: Upper Abdominal Pain Stated Complaint: ABDOMINAL PAIN Time Seen by Provider: 11/20/18 17:56 Primary Care Provider: Camron DUMONT MD [Primary Care Provider] - Follow up as needed TRAVEL OUTSIDE OF THE [place] IN LAST 30 DAYS: No - HPI Notes: 11/20/18 17:56 Patient complained of right upper quadrant abdominal pain and also said that he is gallbladder catheter is no longer draining. He woke up in the morning and noticed the symptoms. Physical exam except for mild right upper quadrant tenderness to palpation is unremarkable. Patient had a gallbladder drainage catheter placed [facility]. - Related Data Allergies/Adverse Reactions: No Known Allergies Allergy (Verified 11/20/18 14:57) Past Medical History - Social History Frequency of alcohol use: None Drug Abuse: None - Past Medical History Cardiac Medical History: Reports: Hx Congestive Heart Failure, Hx Heart Attack, Hx Hypercholesterolemia, Hx Hypertension Endocrine Medical History: Reports: Hx Diabetes Mellitus Type 2 Renal/ Medical History: Denies: Hx Peritoneal Dialysis Past Surgical History: Reports: Hx Cardiac Catheterization, Hx Orthopedic Surgery, Hx Tonsillectomy, Other - Patient has a gallbladder drain since December last year. Physical Exam - Vital signs Vitals: Temp Pulse BP Pulse Ox 97.6 F 76 95/41 L 100 11/20/18 15:10 11/20/18 15:10 11/20/18 15:10 11/20/18 15:10 Course - Vital Signs Vital signs: Temp Pulse Resp BP Pulse Ox 97.6 F 74 20 110/66 98 11/20/18 15:13 11/20/18 17:52 11/20/18 15:13 11/20/18 17:52 11/20/18 15:13 Doctor's Discharge - Discharge Referrals: Camron DUMONT MD [Primary Care Provider] - Follow up as needed
[2018-11-20 18:17] LABS: ABSOLUTE BASOPHILS # (AUTO) 0.1 10^3/uL (0.0-0.2); ABSOLUTE EOSINOPHILS # (AUTO) 0.1 10^3/uL (0.0-0.6); ABSOLUTE LYMPHOCYTES (AUTO) 1.8 10^3/uL (0.5-4.7); ABSOLUTE MONOCYTES (AUTO) 0.9 10^3/uL (0.1-1.4); BASOPHILS % (AUTO) 0.9 % (0-2); EOSINOPHILS % (AUTO) 1.6 % (0-6); HEMATOCRIT 29.5 % (37.9-51.0); HEMOGLOBIN 9.8 g/dL (13.5-17.0); LYMPHOCYTES % (AUTO) 23.1 % (13-45); MEAN CORPUSCULAR HEMOGLOBIN 28.8 pg (27.0-33.4); MEAN CORPUSCULAR HGB CONC 33.1 g/dL (32.0-36.0); MEAN CORPUSCULAR VOLUME 87 fl (80-97); MONOCYTES % (AUTO) 10.9 % (3-13); PLATELET COUNT 357 10^3/uL (150-450); RED BLOOD COUNT 3.39 10^6/uL (4.35-5.55); RED CELL DISTRIBUTION WIDTH 20.1 % (11.5-14.0); SEGMENTED NEUTROPHILS % (AUTO) 63.5 % (42-78); TOTAL CELLS COUNTED % (AUTO) 100 %; WHITE BLOOD COUNT 7.9 10^3/uL (4.0-10.5)
[2018-11-20 18:29] LABS: INTERNATIONAL RATION (INR) 1.11; PROTHROMBIN TIME 14.9 SEC (11.4-15.4)
[2018-11-20 18:30] LABS: PARTIAL THROMBOPLASTIN TIME 33.9 SEC (23.5-35.8)
[2018-11-20 18:41] LABS: ALANINE AMINOTRANSFERASE 22 U/L (21-72); ALBUMIN 3.9 g/dL (3.5-5.0); ALKALINE PHOSPHATASE 109 U/L (38-126); ANION GAP 11 (5-19); ASPARTATE AMINO TRANSFERASE 19 U/L (17-59); BILIRUBIN,DIRECT 0.4 mg/dL (0.0-0.4); BILIRUBIN,TOTAL 0.7 mg/dL (0.2-1.3); BLOOD UREA NITROGEN 36 mg/dL (7-20); CALCIUM 9.9 mg/dL (8.4-10.2); CARBON DIOXIDE 29 mmol/L (22-30); CHLORIDE 99 mmol/L (98-107); GLUCOSE 127 mg/dL (75-110); LIPASE 52.2 U/L (23-300); POTASSIUM 4.1 mmol/L (3.6-5.0); SODIUM 138.9 mmol/L (137-145); TOTAL PROTEIN 6.7 g/dL (6.3-8.2)
--- NOTE | 2018-11-20 19:15 | ER Document Report ---
ED General - General Chief Complaint: Upper Abdominal Pain Stated Complaint: ABDOMINAL PAIN Time Seen by Provider: 11/20/18 17:56 Primary Care Provider: Camron DUMONT MD [Primary Care Provider] - Follow up as needed Notes: Patient is a 68-year-old male with history of cholecystostomy tube placement that presents to the emergency department for chief complaint of malfunctioning of the drain. Patient states that yesterday he was seen by his home health nurse, and his drain was not properly draining, they attempted to flush it, and resulted in the flush saline to come right back out at the site of the insert ion. He does not remember pulling on it at any point time, but is concerned that it may be coming out he said to have one replaced in the past. He was referred by the nurse from his surgeon to come to the ED to have this evaluated. He denies noting any fevers, chills, night sweats, states he has had some pain at the insertion site over the past 24 hours, but denies any yellowing of the skin, or itching. He currently rates his pain as a 1 out of 10, described as an aching sensation. Past Medical History: CAD, hypertension, hyperlipidemia, gallbladder disease Past Surgical History: PCI with stenting x7, cholecystostomy tubes Social History: Denies current tobacco, alcohol or drug use. Family History: Reviewed and noncontributory for presenting illness Allergies: Reviewed, see documented allergy list. REVIEW OF SYSTEMS: Other than noted above, the 12 point review of systems was reviewed with the patient and were negative, all pertinent findings are included in the HPI. PHYSICAL EXAMINATION: Vital signs reviewed, nursing noted reviewed. GENERAL: Well-appearing, well-nourished and in no acute distress. HEAD: Atraumatic, normocephalic. EYES: Eyes appear normal, extraocular movements intact, sclera anicteric, conjunctiva are normal. ENT: nares patent, oropharynx clear without exudates. Moist mucous membranes. NECK: Normal range of motion, supple without lymphadenopathy LUNGS: Breath sounds clear to auscultation bilaterally and equal. No wheezes rales or rhonchi. HEART: Regular rate and rhythm without murmurs ABDOMEN: Soft, nontender, normoactive bowel sounds. No rebound, guarding, or rigidity. No masses appreciated. Cholecystostomy tube noted, minimal drainage noted in the back, not actively draining at the moment, no evidence of infection at this insertion site, very mild erythema and granulation tissue. EXTREMITIES: Nontender, good range of motion, no pitting or edema. NEUROLOGICAL: No focal neurological deficits. Moves all extremities spontaneo usly Motor and sensory grossly intact on exam. PSYCH: Normal mood, normal affect. SKIN: Warm, Dry, normal turgor, no rashes or lesions noted on exposed skin, no jaundice TRAVEL OUTSIDE OF THE [place] IN LAST 30 DAYS: No - Related Data Allergies/Adverse Reactions: No Known Allergies Allergy (Verified 11/20/18 14:57) Past Medical History - Social History Smoking Status: Never Smoker Frequency of alcohol use: None Drug Abuse: None Family History: None Patient has suicidal ideation: No Patient has homicidal ideation: No - Past Medical History Cardiac Medical History: Reports: Hx Congestive Heart Failure, Hx Heart Attack, Hx Hypercholesterolemia, Hx Hypertension Endocrine Medical History: Reports: Hx Diabetes Mellitus Type 2 Renal/ Medical History: Denies: Hx Peritoneal Dialysis Past Surgical History: Reports: Hx Cardiac Catheterization, Hx Orthopedic Surgery, Hx Tonsillectomy, Other - Patient has a gallbladder drain since December last year. - Immunizations Hx Pneumococcal Vaccination: 06/09/18 Physical Exam - Vital signs Vitals: Temp Pulse BP Pulse Ox 97.6 F 76 95/41 L 100 11/20/18 15:10 11/20/18 15:10 11/20/18 15:10 11/20/18 15:10 Course - Re-evaluation Re-evalutation: Patient seen and examined vital signs reviewed. Laboratory data and imaging were ordered as appropriate for the patient's presenting symptoms and complaint, with consideration of any critical or life threatening conditions that may be associated with their obtained history and exam as noted above. Results were reviewed when available and demonstrated mild thickening of the gallbladder on ultrasound, without distention, tubes seem to be in place, blood work was unremarkable, no normal bilirubin, normal alk phos and LFTs. No leukocytosis. Attempt to flush the drain and catheter, however when attempting to flush saline, it seemed to come out of the insertion site, insert for possible fracture of the tubing versus displacement, I discussed this with the on-call surgeon that is working with the patient's general surgeon. Work with Dr. Lopez who recommends the patient come to [place] tomorrow to have it evaluated by interventional radiology, this is not emergent at this time I discussed this at length with the patient and the patient's daughter who is at bedside, I did discuss possible removal of the tube with the surgeon he recommended against this at this time. The patient was re-evaluated and was stable Evaluation was most consistent with cholecystostomy tube malfunction, I did advise to monitor for signs of cholangitis such as jaundice, fever, or significant pain, which the patient was agreeable to Results were discussed with the patient at this point, after careful consideration I feel that that patient can be discharged from the emergency department, the patient was educated treatments and reasons to return to the emergency department based on their presumed diagnosis as noted above, they were advised to followup with a primary care physician in 2-3 days. Patient was agreeable to plan of care. *Note is created using voice recognition software and may contain spelling, syntax or grammatical errors. Laboratory 11/20/18 11/20/18 11/20/18 18:06 18:06 18:06 WBC 7.9 RBC 3.39 L Hgb 9.8 L Hct 29.5 L MCV 87 MCH 28.8 MCHC 33.1 RDW 20.1 H Plt Count 357 Seg Neutrophils % 63.5 Lymphocytes % 23.1 Monocytes % 10.9 Eosinophils % 1.6 Basophils % 0.9 Absolute Neutrophils 5.0 Absolute Lymphocytes 1.8 Absolute Monocytes 0.9 Absolute Eosinophils 0.1 Absolute Basophils 0.1 PT 14.9 INR 1.11 APTT 33.9 Sodium 138.9 Potassium 4.1 Chloride 99 Carbon Dioxide 29 Anion Gap 11 BUN 36 H Creatinine 1.70 H Est GFR ( Amer) 49 L Est GFR (Non-Af Amer) 40 L Glucose 127 H Calcium 9.9 Total Bilirubin 0.7 Direct Bilirubin 0.4 Neonat Total Bilirubin Not Reportable Neonat Direct Bilirubin Not Reportable Neonat Indirect Bili Not Reportable AST 19 ALT 22 Alkaline Phosphatase 109 Total Protein 6.7 Albumin 3.9 Lipase 52.2 Abdomen Ultrasound 11/20/18 17:56 IMPRESSION: Mildly distended gallbladder with mild gallbladder wall thickening. Patient has cholecystostomy tube in place. No significant biliary ductal dilatation. - Vital Signs Vital signs: Temp Pulse Resp BP Pulse Ox 97.4 F 82 20 119/68 96 11/20/18 20:25 11/20/18 20:25 11/20/18 20:25 11/20/18 20:25 11/20/18 20:25 - Laboratory Result Diagrams: 11/20/18 18:06 11/20/18 18:06 Laboratory results interpreted by me: 11/20/18 11/20/18 18:06 18:06 RBC 3.39 L Hgb 9.8 L Hct 29.5 L RDW 20.1 H BUN 36 H Creatinine 1.70 H Est GFR ( Amer) 49 L Est GFR (Non-Af Amer) 40 L Glucose 127 H Discharge - Discharge Clinical Impression: Cholecystostomy tube dysfunction Qualifiers: Encounter type: initial encounter Qualified Code(s): T85.518A - Breakdown (mechanical) of other gastrointestinal prosthetic devices, implants and grafts, initial encounter Condition: Stable Disposition: HOME, SELF-CARE Additional Instructions: Please go to [facility] tomorrow, to the emergency department, Dr. Lopez recommended this, see you can have your drain assessed by interventional radiology at their facility, and you may need another one replaced but they will discuss this with you on your arrival. Please mention that you were referred by Dr. Lopez to be seen when you get to the emergency department. Referrals: Camron DUMONT MD [Primary Care Provider] - Follow up as needed
[2018-11-20 20:26] VITALS: BP 119/68
--- NOTE | 2018-11-20 20:37 | RADIOLOGY REPORT (SQ) ---
EXAM DESCRIPTION: US ABDOMEN LIMITED COMPLETED DATE/TME: 11/20/2018 17:56 CLINICAL HISTORY: 68 years, Male, RUQ abdominal pain, patient has history of drain in the gallbladder. Compared to CT abdomen dated 06/19/2018. Findings: Pancreas is within normal limits in its visualized portion although much of it is poorly visualized due to shadowing. Aorta and IVC are within normal limits. Liver is within normal limits with no focal lesions. No right upper quadrant ascites. Portal vein is patent with hepatopedal flow on color and spectral Doppler imaging. Gallbladder is only mildly distended. There is mild wall thickening. Wall measures approximately 5 mm in thickness. Trace pericholecystic fluid. No significant right upper quadrant ascites. No significant biliary dilatation with CBD measuring less than 5 mm. No right hydronephrosis. IMPRESSION: Mildly distended gallbladder with mild gallbladder wall thickening. Patient has cholecystostomy tube in place. No significant biliary ductal dilatation.
== END 2018-11-20 21:00 | disposition home or self-care (01) ==
LOC: ER 14:55
DX: T85.518A Breakdown (mechanical) of other gastrointestinal prosthetic devices, implants and grafts, initial encounter (principal); R10.10 Upper abdominal pain, unspecified; X58.XXXA Exposure to other specified factors, initial encounter; Z90.49 Acquired absence of other specified parts of digestive tract; E11.9 Type 2 diabetes mellitus without complications; I50.9 Heart failure, unspecified; E78.00 Pure hypercholesterolemia, unspecified; I11.0 Hypertensive heart disease with heart failure; I25.2 Old myocardial infarction
CPT/HCPCS: 36415; 76705; 80053; 83690; 85025; 85610; 85730; 99284

== ENCOUNTER → 2019-01-20 | Outpatient (CLI) | payer OTHER, MEDICARE ==
[2019-01-20 15:20] LABS: ABSOLUTE BASOPHILS # (AUTO) 0.1 10^3/uL (0.0-0.2); ABSOLUTE EOSINOPHILS # (AUTO) 0.1 10^3/uL (0.0-0.6); ABSOLUTE LYMPHOCYTES (AUTO) 1.8 10^3/uL (0.5-4.7); ABSOLUTE MONOCYTES (AUTO) 0.8 10^3/uL (0.1-1.4); ABSOLUTE NEUT (AUTO) 5.1 10^3/uL (1.7-8.2); BASOPHILS % (AUTO) 0.9 % (0-2); EOSINOPHILS % (AUTO) 1.3 % (0-6); HEMATOCRIT 37.2 % (37.9-51.0); HEMOGLOBIN 12.3 g/dL (13.5-17.0); MEAN CORPUSCULAR HEMOGLOBIN 28.1 pg (27.0-33.4); MEAN CORPUSCULAR HGB CONC 33.1 g/dL (32.0-36.0); MEAN CORPUSCULAR VOLUME 85 fl (80-97); MONOCYTES % (AUTO) 10.1 % (3-13); PLATELET COUNT 267 10^3/uL (150-450); RED BLOOD COUNT 4.37 10^6/uL (4.35-5.55); RED CELL DISTRIBUTION WIDTH 18.5 % (11.5-14.0); SEGMENTED NEUTROPHILS % (AUTO) 64.7 % (42-78); TOTAL CELLS COUNTED % (AUTO) 100 %
[2019-01-20 15:23] LABS: APPEARANCE,URINE CLEAR; BILIRUBIN,URINE NEGATIVE (NEGATIVE); COLOR,URINE YELLOW; GLUCOSE, URINE NEGATIVE (NEGATIVE); KETONES,URINE NEGATIVE (NEGATIVE); LEUKOCYTE ESTERASE,URINE SMALL (NEGATIVE); NITRITE,URINE NEGATIVE (NEGATIVE); PROTEIN,URINE NEGATIVE (NEGATIVE); URINE SPECIFIC GRAVITY 1.008; UROBILINOGEN,URINE NEGATIVE mg/dL (<2.0)
[2019-01-20 15:39] LABS: ALANINE AMINOTRANSFERASE 25 U/L (21-72); ALKALINE PHOSPHATASE 134 U/L (38-126); ANION GAP 13 (5-19); ASPARTATE AMINO TRANSFERASE 20 U/L (17-59); BILIRUBIN,DIRECT 0.3 mg/dL (0.0-0.4); BILIRUBIN,TOTAL 0.6 mg/dL (0.2-1.3); BLOOD UREA NITROGEN 33 mg/dL (7-20); CARBON DIOXIDE 31 mmol/L (22-30); CHLORIDE 100 mmol/L (98-107); GLUCOSE 157 mg/dL (75-110); PHOSPHORUS 3.8 mg/dL (2.5-4.5); POTASSIUM 3.8 mmol/L (3.6-5.0); SODIUM 143.7 mmol/L (137-145); TOTAL PROTEIN 7.2 g/dL (6.3-8.2)
== END ==
LOC: OD 14:50
PROVIDERS: ATTEND Internal Medicine Nephrology
DX: I12.9 Hypertensive chronic kidney disease with stage 1 through stage 4 chronic kidney disease, or unspecified chronic kidney disease (principal); N18.3 Chronic kidney disease, stage 3 (moderate); D63.1 Anemia in chronic kidney disease; E11.22 Type 2 diabetes mellitus with diabetic chronic kidney disease
CPT/HCPCS: 36415; 80053; 81001; 83735; 83970; 84100; 85025

== ENCOUNTER → 2019-05-19 | Outpatient (CLI) | payer MEDICARE ==
[2019-05-19 17:06] LABS: HEMATOCRIT 36.4 % (37.9-51.0); HEMOGLOBIN 12.3 g/dL (13.5-17.0); MEAN CORPUSCULAR HGB CONC 33.6 g/dL (32.0-36.0); MEAN CORPUSCULAR VOLUME 89 fl (80-97); PLATELET COUNT 184 10^3/uL (150-450); RED BLOOD COUNT 4.09 10^6/uL (4.35-5.55); WHITE BLOOD COUNT 7.2 10^3/uL (4.0-10.5)
[2019-05-19 17:15] LABS: APPEARANCE,URINE CLEAR; BILIRUBIN,URINE NEGATIVE (NEGATIVE); COLOR,URINE YELLOW; GLUCOSE, URINE NEGATIVE (NEGATIVE); KETONES,URINE NEGATIVE (NEGATIVE); LEUKOCYTE ESTERASE,URINE NEGATIVE (NEGATIVE); NITRITE,URINE NEGATIVE (NEGATIVE); PROTEIN,URINE NEGATIVE (NEGATIVE); URINE SPECIFIC GRAVITY 1.009; UROBILINOGEN,URINE NEGATIVE mg/dL (<2.0)
[2019-05-19 17:28] LABS: ANION GAP 14 (5-19); BLOOD UREA NITROGEN 23 mg/dL (7-20); CALCIUM 9.5 mg/dL (8.4-10.2); CARBON DIOXIDE 27 mmol/L (22-30); CHLORIDE 101 mmol/L (98-107); GLUCOSE 223 mg/dL (75-110); POTASSIUM 3.5 mmol/L (3.6-5.0)
== END ==
LOC: OD 16:19
PROVIDERS: ATTEND Internal Medicine Nephrology
DX: I13.0 Hypertensive heart and chronic kidney disease with heart failure and stage 1 through stage 4 chronic kidney disease, or unspecified chronic kidney disease (principal); I50.9 Heart failure, unspecified; N18.3 Chronic kidney disease, stage 3 (moderate); E11.22 Type 2 diabetes mellitus with diabetic chronic kidney disease; D64.9 Anemia, unspecified
CPT/HCPCS: 36415; 80048; 81001; 85027